=== PATIENT | female | born 2000 | race Caucasian/White ===

== ENCOUNTER 2023-01-27 04:17 | Observation (INO) ==
--- NOTE | 2023-01-27 04:38 | Emergency Department Note ---
Impression & Plan Nausea & vomiting, ED Provider Note CHIEF COMPLAINT: Vomiting, HISTORY OF PRESENTING ILLNESS: This 22-year-old female patient, who is approximately 15 to 16 weeks , presents to the emergency department for evaluation of vomiting and dehydration. The patient states that she has vomiting every hour since yesterday and unable to keep anything down. She complains of left flank pain and weakness as well. She feels that it is just from vomiting so much and feeling that her stomach is so empty. She has tried Zofran, Reglan, and Phenergan suppositories without improvement of her nausea and vomiting. Denies vaginal bleeding or vaginal discharge. She is still urinating 3-5 times a day. Denies any urinary symptoms. No fevers. Denies chest pain or SOB. She states that she has not had a BM in about 5 days because she has not been able to eat much. She has been trying to cut back on her marijuana use with her last use yesterday morning. REVIEW OF SYSTEMS: See HPI for pertinent positives and pertinent negatives. ALLERGIES: Lactose, red dye MEDICATIONS: See below PAST MEDICAL HISTORY: See below PHYSICAL EXAM: VITALS: Vitals are noted on the nurse's note and reviewed by myself. GENERAL: Non toxic, no acute distress, non-diaphoretic. SKIN: Capillary refill <2 sec. EYES: PERRLA. EOMI. Conjunctivae without injection, sclerae without icterus. NOSE: Patent without discharge. MOUTH: Mucous membranes moist. Uvula midline. Airway patent. NECK: Supple without nuchal rigidity. HEART: Regular rate and rhythm without murmurs gallops or rubs. LUNGS: Clear to auscultation bilaterally without wheezes, rales or rhonchi. No retractions or accessory muscle use. ABDOMEN: Positive bowel sounds x 4. Normal tympanic percussion. Soft, gravid, tender to palpation to the left flank without central abdominal pain. No masses or organomegaly. Alrkin sign negative. No guarding or rebound tenderness. No focal RLQ or LLQ tenderness. MUSCULOSKELETAL: No gross musculoskeletal defects. NEURO: Patient was alert and oriented. No focal neurological deficits. DIFFERENTIAL DIAGNOSIS: Differential diagnosis includes hyperemesis gravidarum, cannabinoid hyperemesis syndrome, hepatitis, pancreatitis, cholecystitis, cholelithiasis, appendicitis, kidney stone, pyelonephritis, UTI, gastritis, gastroenteritis, mesenteric adenitis, obstruction, constipation, hernia, abdominal abscess, perforation, diverticulitis, IBD, ischemic colitis, abdominal aortic aneurysm, ovarian cyst, ovarian torsion, acute salpingitis, or others. ED COURSE AND MEDICAL DECISION MAKING: MONITOR: Continuous potline monitor: Order was placed for continuous potline monitor. Patient was placed on the potline monitor and continuous pulse ox. Patient was noted to be in normal sinus rhythm at an initial rate of 72 bpm per my interpretation. MEDICATIONS GIVEN: A total of 2 L normal saline solution bolus. Zofran 4 mg IV, Reglan 10 mg IV, Phenergan 25 mg IM, Tylenol 1000 mg IV, and Pepcid 20 mg IV. INTERPRETATION OF LABS: I interpreted the labs with full lab results as below in the lab section of this note. CBC without leukocytosis, anemia, or thrombocytopenia. Potassium low at 3.3, but CMP otherwise essentially unremarkable. Lipase was normal. Urinalysis with 4+ ketones and questionable UTI. INTERPRETATION OF IMAGING: Imaging studies were interpreted by myself and read by radiology as per the imaging section of this note. Renal ultrasound was unremarkable. EXTERNAL RECORDS REVIEWED: I reviewed the patient's last ER visit on 01/23/2023 as well as her most recent [facility] visit. ultrasound on 01/23/2023 showed a single live intrauterine at approximately 15 weeks. CONSULTATIONS: Dr. Chopra of [facility] MDM SUMMARY: I examined the patient. An IV lock was placed and labs were drawn. The patient was medicated as above with improvement of her symptoms, but continued symptoms. ultrasound from 01/23/2023 was reviewed and renal ultrasound from today was unremarkable. heart tones were 140. The patient denies any pelvic pain or cramping and denies any vaginal bleeding or vaginal discharge. I do not feel that repeat ultrasound is needed at this time. The patient's urinalysis is questionable for infection and she states that she was to be taking a prescription for penicillin for a dental infection, but has been unable to take it due to the nausea and vomiting. Therefore, she was given Rocephin 2 g IV. The patient has Zofran, Reglan, and Phenergan suppositories at home and has been unable to manage her symptoms at home. Since the patient is still symptomatic after IV medications, I feel the patient requires admission for further management of her symptoms. I spoke with Dr. Chopra of [facility] who agreed to admit the patient for further management. Please refer to her dictation for further details. The patient's care was transferred in stable condition. DIAGNOSIS: Intractable nausea and vomiting Past Med/Surg History Medical History (Updated 01/27/23 @ 19:05 by Eufemia Bah PA-C) Anemia Asthma Chronic constipation Lactose intolerance Varicella vaccination Surgical History S/P foot surgery, left foot replacement S/P cholecystectomy S/P appendectomy S/P tonsillectomy and adenoidectomy Family History Grandmother (Maternal) Thyroid cancer Heart disease Grandfather (Maternal) Heart disease Denies family history of Ovarian cancer Breast cancer Colorectal cancer Social History (Updated 01/27/23 @ 17:14 by Armida Jarrell RN) Smoking Status: Former smoker Second Hand Exposure: No; Do You Dip or Chew Tobacco: No; Hx Alcohol Use: No Hx Substance Use: Yes Prescribed Medications: Marijuana Last Used Substance: Days (ago) Substance Use Type Other:: has marijuana card Preferred Language: Croatian Communication Ability: Effective Mud Mixer Operator Required: No Beliefs That Will Affect Care: None marital status: Single marital status details: Gabi Moy(25) [phone] Current Living Situation: Significant Other Current Living Situation Comment: Lives with S.O. and 2 children current occupational status: unemployed current occupation: homemaker Feels Safe at Home: Yes Gender Identity: Female Assistive Devices: None Allergies Allergies Allergy/AdvReac Type Severity Reaction Status Date / Time lactose Allergy Severe Gastrointestinal Verified 01/26/23 09:56 Upset red dye Allergy Severe Difficulty Verified 01/26/23 09:56 Breathing Home Meds Home Medications Medication Instructions Recorded Confirmed docusate sodium 100 mg capsule 100 mg PO BID 01/23/23 01/27/23 (Colace) ondansetron 4 mg disintegrating 4 mg PO .Q6H PRN Nausea And 01/23/23 01/27/23 tablet Vomiting polyethylene glycol 3350 17 gram 17 g PO BID 01/23/23 01/27/23 oral powder packet (Miralax) psyllium husk 0.4 gram capsule 1 tab PO DAILY 01/23/23 01/27/23 (Daily Fiber) Gummies 2 ea PO DAILY 01/27/23 01/27/23 albuterol sulfate 90 mcg/actuation See Rx Instructions .Route .COMPLEX 01/27/23 01/27/23 aerosol inhaler Previous Rx's Medication Instructions Recorded metoclopramide HCl 5 mg tablet 5 mg PO Q8H PRN nausea and 01/23/23 vomiting #10 tabs penicillin V potassium 500 mg 500 mg PO Q6H 7 days #28 tabs 01/23/23 tablet promethazine 12.5 mg rectal 12.5 mg [place] Q6H PRN nausea and 01/26/23 suppository vomiting #12 ea Results & Data (ED) Vital Signs Vital Signs - 24 hr 01/27/23 04:29 01/27/23 05:15 01/27/23 05:15 Temperature 36.6 C Temperature Source Temporal Artery Scan Pulse Rate 93 H 74 Pulse Rate [Apical] 74 Pulse Rhythm Regular Regular Pulse Rhythm [Apical] Regular Pulse Strength Normal Pulse Strength [Apical] Normal Respiratory Rate 20 18 18 Respiratory Effort / Characteristics Non-Labored Spontaneous Non-Labored Respiratory Depth Normal Normal Respiratory Pattern Regular Blood Pressure 121/75 Blood Pressure [Right Arm] 121/69 Blood Pressure Mean 90 Blood Pressure Mean [Right Arm] 86 Blood Pressure Position Sitting Pulse Oximetry 97 97 95 Oxygen Delivery Method Room Air Room Air Room Air Sepsis Recent Fever Within 48 Hours No Sepsis New/Unexplained Change in Mental Status N/A Sepsis Action Taken by Nursing No Action Required 01/27/23 05:16 01/27/23 05:30 01/27/23 06:00 Temperature Temperature Source Pulse Rate 77 71 74 Pulse Rate [Apical] Pulse Rhythm Pulse Rhythm [Apical] Pulse Strength Pulse Strength [Apical] Respiratory Rate 17 28 H Respiratory Effort / Characteristics Respiratory Depth Respiratory Pattern Blood Pressure 136/92 130/77 Blood Pressure [Right Arm] Blood Pressure Mean 106 94 Blood Pressure Mean [Right Arm] Blood Pressure Position Pulse Oximetry 100 99 Oxygen Delivery Method Sepsis Recent Fever Within 48 Hours Sepsis New/Unexplained Change in Mental Status Sepsis Action Taken by Nursing 01/27/23 07:00 01/27/23 09:00 Temperature Temperature Source Temporal Artery Scan Pulse Rate Pulse Rate [Apical] 100 H 87 Pulse Rhythm Pulse Rhythm [Apical] Regular Regular Pulse Strength Pulse Strength [Apical] Normal Normal Respiratory Rate 22 22 Respiratory Effort / Characteristics Non-Labored Non-Labored Respiratory Depth Normal Normal Respiratory Pattern Regular Regular Blood Pressure Blood Pressure [Right Arm] 133/65 113/72 Blood Pressure Mean Blood Pressure Mean [Right Arm] 87 85 Blood Pressure Position Pulse Oximetry 99 99 Oxygen Delivery Method Room Air Room Air Sepsis Recent Fever Within 48 Hours Sepsis New/Unexplained Change in Mental Status Sepsis Action Taken by Nursing Laboratory Data 01/27/23 05:10 01/27/23 05:10 Lab Results 01/27/23 Range/Units 05:10 WBC 7.33 (4.8-10.8) K/ul RBC 4.67 (4.20-5.40) M/uL Hgb 12.5 (12.0-16.0) g/dl Hct 36.3 L (37.0-47.0) % MCV 77.7 L (80.0-100.0) fL MCH 26.8 (25.0-34.0) pg MCHC 34.4 (32.0-36.0) g/dL RDW Std Deviation 39.1 (36.4-46.3) fL RDW Coeff of Jatin 14.0 (11.5-14.5) % Plt Count 299 (130-400) K/uL MPV 10.4 (9.4-12.4) fL Immature Gran % (Auto) 0.3 % Neut % (Auto) 66.6 % Lymph % (Auto) 25.4 % Cecil % (Auto) 7.0 % Eos % (Auto) 0.3 % Baso % (Auto) 0.4 % Neut # (Auto) 4.89 (1.40-6.50) K/uL Lymph # (Auto) 1.86 (1.20-3.40) K/uL Cecil # (Auto) 0.51 (0.11-0.59) K/uL Eos # (Auto) 0.02 (0.00-0.50) K/uL Baso # (Auto) 0.03 (0.00-0.20) K/uL Immature Gran # (Auto) 0.02 (0.01-0.20) K/uL Sodium 138 (136-145) mmol/L Potassium 3.3 L (3.5-5.1) mmol/L Chloride 104 (98-107) mmol/L Carbon Dioxide 23 (21-32) mmol/L Anion Gap 11 (3-11) BUN 5 L (6-23) mg/dl Creatinine 0.45 L (0.6-1.2) mg/dl Est Cr Clr Drug Dosing 192.9 ml/min Est GFR ( Amer) > 150.0 ml/min Est GFR (Non-Af Amer) 141.2 ml/min BUN/Creatinine Ratio 11.1 (10-20) Glucose 96 (70-99(Fasting)) mg/dl Calcium 9.0 (8.6-10.3) mg/dl Magnesium 1.8 (1.7-2.4) mg/dl Total Bilirubin 0.6 (0.2-1.0) mg/dl AST 10 L (13-39) U/L ALT 11 (7-52) U/L Alkaline Phosphatase 77 (34-104) U/L Total Protein 7.5 (6.0-8.3) gm/dl Albumin 4.1 (3.4-5.0) gm/dl Globulin 3.4 (2.5-4.0) gm/dl Albumin/Globulin Ratio 1.2 (0.9-2) Lipase 8 L (11-82) U/L Urine Color Dark Yellow Urine Appearance Cloudy A (Clear) Urine pH 6.0 (4.5-7.5) Ur Specific [place] 1.024 (1.000-1.030) Urine Protein Trace H (Negative) Urine Glucose (UA) Negative (Negative) Urine Ketones 4+ H (Negative) Urine Blood Negative (Negative) Urine Nitrite Negative (Negative) Urine Bilirubin Negative (Negative) Urine Urobilinogen Negative (Negative) Ur Leukocyte Esterase 2+ H (Negative) Urine WBC (Auto) >30 H (0-5) /hpf Urine RBC (Auto) 5-10 H (0-4) /hpf U Hyaline Cast (Auto) 0 (0-5) /lpf U Epithel Cells (Auto) >30 H (0-5) /lpf Urine Bacteria (Auto) 1+ H (Negative) Administered Medications Promethazine HCl 25 mg/ Sodium (Chloride) 51 mls @ 204 mls/hr IV Q6H BERTA Stop: 02/26/23 13:29 Last Infusion: 01/27/23 15:41 Dose: Infused Documented By: Admin: 01/27/23 15:24 Dose: 204 mls/hr Documented By: Aron Lactated Ringer's (Lr) 1,000 mls @ 125 mls/hr IV .Q8H PRN; Protocol PRN Reason: L&D Protocol Stop: 02/26/23 09:51 Last Admin: 01/27/23 18:32 Dose: 125 mls/hr Documented By: [facility] [place] Infusion: 01/27/23 18:32 Dose: Infused Documented By: [facility] [place] Admin: 01/27/23 11:02 Dose: 125 mls/hr Documented By: Aron Famotidine 20 mg/ Syringe 5 mls @ 2.5 mls/min IV Q12 BERTA Stop: 02/26/23 17:59 Last Admin: 01/27/23 18:08 Dose: 2.5 mls/min Documented By: Cdoi Acetaminophen (Ofirmev) 1,000 mg in 100 mls @ 400 mls/hr IV Q8H PRN PRN Reason: As Needed for Fever or Pain Stop: 01/30/23 10:44 Last Infusion: 01/27/23 15:41 Dose: Infused Documented By: Aron Admin: 01/27/23 15:26 Dose: 400 mls/hr Documented By: Aron Metoclopramide HCl (Metoclopramide Hcl Inj 5 Mg/Ml 2 Ml Vial) 5 mg IV Q6H BERTA Stop: 02/26/23 10:59 Last Admin: 01/27/23 17:21 Dose: 5 mg Documented By: [facility] [place] Admin: 01/27/23 12:56 Dose: 5 mg Documented By: Aron Ondansetron HCl (Ondansetron Inj 2 Mg/Ml 2 Ml Vial) 4 mg IV Q6H BERTA Stop: 02/26/23 10:29 Last Admin: 01/27/23 17:17 Dose: 4 mg Documented By: [facility] [place] Admin: 01/27/23 11:02 Dose: 4 mg Documented By: Aron Discontinued Medications Bisacodyl (Bisacodyl 10 Mg Supp) 10 mg GA NOW STA Stop: 01/27/23 10:03 Last Admin: 01/27/23 11:02 Dose: 10 mg Documented By: Aron Sodium Chloride (Nss) 1,000 mls @ 999 mls/hr IV .Q1H1M BERTA Stop: 01/27/23 06:00 Last Infusion: 01/27/23 07:32 Dose: Infused Documented By: Admin: 01/27/23 05:09 Dose: 999 mls/hr Documented By: FARHEEN Acetaminophen (Ofirmev) 1,000 mg in 100 mls @ 400 mls/hr IV NOW STA Stop: 01/27/23 05:02 Last Infusion: 01/27/23 05:26 Dose: Infused Documented By: Admin: 01/27/23 05:09 Dose: 400 mls/hr Documented By: FARHEEN Famotidine (Pepcid 20mg Iv Push) 20 mg in 5 mls @ 2.5 mls/min IV NOW STA Stop: 01/27/23 05:55 Last Admin: 01/27/23 06:10 Dose: 2.5 mls/min Documented By: DOMINGA Sodium Chloride (Nss) 1,000 mls @ 999 mls/hr IV .Q1H1M ONE Stop: 01/27/23 07:15 Last Infusion: 01/27/23 08:39 Dose: Infused Documented By: Admin: 01/27/23 06:57 Dose: 999 mls/hr Documented By: FARHEEN Ceftriaxone Sodium (Rocephin) 2,000 mg in 50 mls @ 100 mls/hr IV NOW STA Stop: 01/27/23 07:44 Last Infusion: 01/27/23 08:39 Dose: Infused Documented By: Admin: 01/27/23 07:23 Dose: 100 mls/hr Documented By: EZEKIEL Metoclopramide HCl (Metoclopramide Hcl Inj 5 Mg/Ml 2 Ml Vial) 10 mg IV NOW STA Stop: 01/27/23 05:29 Last Admin: 01/27/23 05:31 Dose: 10 mg Documented By: FARHEEN Ondansetron HCl (Ondansetron Inj 2 Mg/Ml 2 Ml Vial) 4 mg IV NOW STA Stop: 01/27/23 04:49 Last Admin: 01/27/23 05:09 Dose: 4 mg Documented By: FARHEEN Promethazine HCl (Promethazine Hcl Inj 25 Mg/Ml 1 Ml Vial) 25 mg IM NOW STA Stop: 01/27/23 07:16 Last Admin: 01/27/23 07:23 Dose: 25 mg Documented By: EZEKIEL Imaging Data Radiologist's Impression: Renal Ultrasound 01/27/23 04:48 ULTRASOUND KIDNEYS AND BLADDER CLINICAL HISTORY: Vomiting. Left flank pain. . COMPARISON STUDY: No priors. TECHNIQUE: Real-time, grayscale, and color flow sonography of the kidneys and bladder is performed. Images are reviewed in the transverse and longitudinal planes. FINDINGS: Kidneys: The kidneys are normal in size and echotexture. The right kidney measures 10.5 x 4.5 x 5.1 cm and the left kidney measures 11.6 x 4.8 x 5.5 cm. There is no hydronephrosis. No shadowing renal calculi are identified. There is no sonographic evidence of contour deforming renal mass lesion. No perinephric fluid is identified. Bladder: The bladder is decompressed and grossly normal in appearance. Bilateral ureteral jets were seen. IMPRESSION: Unremarkable sonographic examination of the kidneys and bladder. ACT 112: Negative or not required by law. Electronically signed by: Fredi Putnam M.D. 01/27/2023 6:52 AM Discharge Plan Visit Data Chief Complaint: Vomiting Stated Complaint: 15/16 WKS PREGANT,CAN'T STOP VOMITING,WEAK,DEHYDRA ED Provider: Davide Cal[facility] ED Midlevel Provider: Eufemia Bah Discharge Problem: Nausea & vomiting, Patient Disposition: Admitted As Inpatient Condition: Good Discharge Instructions Interventions: ED Discharge Assessment Last Done: 01/27/23 14:13 Discharge Problem: Nausea & vomiting Qualifiers: Vomiting type: unspecified Qualified Code(s): R11.2 - Nausea with vomiting, unspecified Qualifiers: Weeks of gestation: 16 weeks Qualified Code(s): Z3A.16 - 16 weeks gestation of
[2023-01-27] MEDS ORDERED: ONDANSETRON INJ 2 MG/ML 2 ML VIAL IV STA (04:48)
[2023-01-27] MEDS ORDERED: ACETAMINOPHEN 1,000 MG/100 ML VIAL IV STA (04:48)
[2023-01-27] MEDS ORDERED: SODIUM CHLORIDE 0.9% 1,000 ML IV SCH (05:00)
[2023-01-27 05:26] LABS: Basophils # (auto) 0.03 K/uL (0.00-0.20); Basophils % (auto) 0.4 %; Eosinophils # (auto) 0.02 K/uL (0.00-0.50); Eosinophils % (auto) 0.3 %; Hematocrit (blood only) 36.3 % (37.0-47.0); Hemoglobin 12.5 g/dl (12.0-16.0); Immature Granulocytes # (auto) 0.02 K/uL (0.01-0.20); Immature Granulocytes % (auto) 0.3 %; Lymphocytes # (auto) 1.86 K/uL (1.20-3.40); Lymphocytes % (auto) 25.4 %; Mean Corpuscular Hemoglobin 26.8 pg (25.0-34.0); Mean Corpuscular Hgb Conc 34.4 g/dL (32.0-36.0); Mean Corpuscular Volume 77.7 fL (80.0-100.0); Mean Platelet Volume 10.4 fL (9.4-12.4); Monocytes # (auto) 0.51 K/uL (0.11-0.59); Neutrophils # (auto) 4.89 K/uL (1.40-6.50); Neutrophils % (auto) 66.6 %; Platelet Count 299 K/uL (130-400); RDW Standard Deviation 39.1 fL (36.4-46.3); Red Blood Count 4.67 M/uL (4.20-5.40); White Blood Count 7.33 K/ul (4.8-10.8)
[2023-01-27] MEDS ORDERED: METOCLOPRAMIDE HCL INJ 5 MG/ML 2 ML VIAL IV STA (05:28)
[2023-01-27 05:36] LABS: Appearance Urine Cloudy (Clear); Bacteria Urine Automated 1+ (Negative); Bilirubin Urine Negative (Negative); Blood Urine Negative (Negative); Color Urine Dark Yellow; Epithelial Cell Urine Auto >30 /lpf (0-5); Glucose Urine UA Negative (Negative); Ketones Urine 4+ (Negative); Leukocyte Esterase Urine 2+ (Negative); Nitrite Urine Negative (Negative); Protein Urine Trace (Negative); Specific Gravity Urine 1.024 (1.000-1.030); Urobilinogen Urine Negative (Negative); WBC Urine Automated >30 /hpf (0-5)
[2023-01-27 05:42] LABS: Albumin Level 4.1 gm/dl (3.4-5.0); Anion Gap 11 (3-11); Bilirubin,Total 0.6 mg/dl (0.2-1.0); Carbon Dioxide 23 mmol/L (21-32); Chloride 104 mmol/L (98-107); Magnesium 1.8 mg/dl (1.7-2.4); Potassium 3.3 mmol/L (3.5-5.1); Sodium 138 mmol/L (136-145)
[2023-01-27 05:48] LABS: Alanine Aminotransferase 11 U/L (7-52); Albumin Globulin Ratio 1.2 (0.9-2); Alkaline Phosphatase 77 U/L (34-104); Aspartate Aminotransferase 10 U/L (13-39); BUN Creatinine Ratio 11.1 (10-20); Blood Urea Nitrogen 5 mg/dl (6-23); Creatinine Clr Calc Pharmacy 192.9 ml/min; Est GFR (African American) > 150.0 ml/min; Est GFR (Non-African American) 141.2 ml/min; Globulin 3.4 gm/dl (2.5-4.0); Glucose 96 mg/dl (70-99(Fasting)); Lipase 8 U/L (11-82); Total Protein 7.5 gm/dl (6.0-8.3)
[2023-01-27] MEDS ORDERED: FAMOTIDINE 20MG IV PUSH 20 MG/5 ML SYR IV STA (05:54)
[2023-01-27] MEDS ORDERED: SODIUM CHLORIDE 0.9% 1,000 ML IV ONE (06:15)
[2023-01-27 06:30] LABS: Cast Urine Automated 0 /lpf (0-5)
--- NOTE | 2023-01-27 06:53 | Ultrasound Report ---
ULTRASOUND KIDNEYS AND BLADDER CLINICAL HISTORY: Vomiting. Left flank pain. . COMPARISON STUDY: No priors. TECHNIQUE: Real-time, grayscale, and color flow sonography of the kidneys and bladder is performed. I mages are reviewed in the transverse and longitudinal planes. FINDINGS: Kidneys: The kidneys are normal in size and echotexture. The right kidney measures 10.5 x 4.5 x 5.1 c m and the left kidney measures 11.6 x 4.8 x 5.5 cm. There is no hydronephrosis. No shadowing renal c alculi are identified. There is no sonographic evidence of contour deforming renal mass lesion. No pe rinephric fluid is identified. Bladder: The bladder is decompressed and grossly normal in appearance. Bilateral ureteral jets were s een. IMPRESSION: Unremarkable sonographic examination of the kidneys and bladder. ACT 112: Negative or not required by law. Electronically signed by: Fredi Putnam M.D. 01/27/2023 6:52 AM
[2023-01-27] MEDS ORDERED: PROMETHAZINE HCL INJ 25 MG/ML 1 ML VIAL IM STA (07:15)
[2023-01-27] MEDS ORDERED: cefTRIAXone SODIUM 2,000 MG/50 ML BAG IV STA (07:15)
[2023-01-27] MEDS ORDERED: bisacodyL 10 MG SUPP PR STA (10:02)
--- NOTE | 2023-01-27 10:38 | OB/GYN Consultation ---
Date of Consultation January 27, 2023 Assessment & Plan (1) Nausea & vomiting: (2) : Plan 22 yo at 15 6/7 wga to be admitted for persistent n/v VSS N/V - electrolytes wnl except just slighty hypokalemic, stable from ER visit earlier this week. Suspect constipation is playing a role in the n/v of as she also can't keep medications to help her constipation and zofran contributing to the constipation as well. Will admit and make NPO, IVF. s/p 2L NS in the ER so will start LR to see if will help slight hypokalemia as well. Will have scheduled IV zofran, reglan, phenergan, pepcid. Offered suppository to help w/ constipation as cannot tolerate PO med and she is amenable. Monitor I/Os, repeat labs/electrolytes IUP - FHT 140s in the ER, continue daily UA - ?contaminated as was reassuring yday in clinic, was given dose of rocephin by ER as she was supposed to be taking pcn for tooth infection but hasn't been able to tolerate History of Present Illness Reason for Consultation: intractable n/v Requesting Physician: Eufemia Bah History of Present Illness 22 yo at 15 6/7 wga presented to ER due to persistent n/v. Has been dealing w/ n/v throughout the . Was seen yesterday for NOB visit and had been able to keep somethings down but after visit hasn't been able to keep anything down and reports vomiting constantly. Was using zofran which did not help so was given reglan in ER earlier this wk w/o much relief. Was given rectal phenergan yesterday after visit, first dose helped a little but vomited through second dose and presented to ER due to persistent vomiting since then. Notes has been having issues w/ constipation but cannot keep the miralax down that she was recommended. Had a small pellet like BM this AM but prior to that had not really had a good BM in days. Denies vb Allergies Allergy/AdvReac Type Severity Reaction Status Date / Time lactose Allergy Severe Gastrointestinal Verified 01/26/23 09:56 Upset red dye Allergy Severe Difficulty Verified 01/26/23 09:56 Breathing Home Medications Medication Instructions Recorded Confirmed Type docusate sodium 100 mg capsule 100 mg PO BID 01/23/23 01/27/23 History (Colace) metoclopramide HCl 5 mg tablet 5 mg PO Q8H PRN nausea and 01/23/23 01/27/23 Rx vomiting #10 tabs ondansetron 4 mg disintegrating 4 mg PO .Q6H PRN Nausea And 01/23/23 01/27/23 History tablet Vomiting penicillin V potassium 500 mg 500 mg PO Q6H 7 days #28 tabs 01/23/23 01/27/23 Rx tablet polyethylene glycol 3350 17 gram 17 g PO BID 01/23/23 01/27/23 History oral powder packet (Miralax) psyllium husk 0.4 gram capsule 1 tab PO DAILY 01/23/23 01/27/23 History (Daily Fiber) promethazine 12.5 mg rectal 12.5 mg [place] Q6H PRN nausea and 01/26/23 01/27/23 Rx suppository vomiting #12 ea Gummies 2 ea PO DAILY 01/27/23 01/27/23 History albuterol sulfate 90 mcg/actuation See Rx Instructions .Route .COMPLEX 01/27/23 01/27/23 History aerosol inhaler Patient History Medical History Chronic constipation Lactose intolerance Varicella vaccination Surgical History S/P foot surgery, left foot replacement S/P cholecystectomy S/P appendectomy S/P tonsillectomy and adenoidectomy Family History Grandmother (Maternal) Thyroid cancer Heart disease Grandfather (Maternal) Heart disease Denies family history of Ovarian cancer Breast cancer Colorectal cancer Social History Smoking Status: Never smoker Do You Dip or Chew Tobacco: No; Preferred Language: Sami marital status: Single marital status details: aGbi Moy(25) [phone] Current Living Situation: Family and Significant Other Current Living Situation Comment: lives with Fob, 2 children, no pets current occupational status: unemployed current occupation: homemaker Feels Safe at Home: Yes Physical Exam Respiratory: normal respiratory effort; no respiratory distress and no labored breathing Gastrointestinal (Abdomen): soft, gravid, NT heart tones auscultated 140s w/ doppler Results & Data Vital Signs (Past 12 Hours) Vital Signs Temp Pulse Pulse Resp BP BP Pulse Ox 01/27/23 09:00 87 22 113/72 99 01/27/23 07:00 100 H 22 133/65 99 01/27/23 06:00 74 28 H 130/77 99 01/27/23 05:30 71 17 136/92 100 01/27/23 05:16 77 01/27/23 05:15 74 18 95 01/27/23 05:15 74 18 121/69 97 01/27/23 04:29 97.9 F 93 H 20 121/75 97 O2 Del Method 01/27/23 09:00 Room Air 01/27/23 07:00 Room Air 01/27/23 06:00 01/27/23 05:30 01/27/23 05:16 01/27/23 05:15 Room Air 01/27/23 05:15 Room Air 01/27/23 04:29 Room Air Laboratory Results 01/27/23 Range/Units 05:10 WBC 7.33 (4.8-10.8) K/ul RBC 4.67 (4.20-5.40) M/uL Hgb 12.5 (12.0-16.0) g/dl Hct 36.3 L (37.0-47.0) % MCV 77.7 L (80.0-100.0) fL MCH 26.8 (25.0-34.0) pg MCHC 34.4 (32.0-36.0) g/dL RDW Std Deviation 39.1 (36.4-46.3) fL RDW Coeff of Jatin 14.0 (11.5-14.5) % Plt Count 299 (130-400) K/uL MPV 10.4 (9.4-12.4) fL Immature Gran % (Auto) 0.3 % Neut % (Auto) 66.6 % Lymph % (Auto) 25.4 % Div[place] % (Auto) 7.0 % Eos % (Auto) 0.3 % Baso % (Auto) 0.4 % Neut # (Auto) 4.89 (1.40-6.50) K/uL Lymph # (Auto) 1.86 (1.20-3.40) K/uL [place] # (Auto) 0.51 (0.11-0.59) K/uL Eos # (Auto) 0.02 (0.00-0.50) K/uL Baso # (Auto) 0.03 (0.00-0.20) K/uL Immature Gran # (Auto) 0.02 (0.01-0.20) K/uL Sodium 138 (136-145) mmol/L Potassium 3.3 L (3.5-5.1) mmol/L Chloride 104 (98-107) mmol/L Carbon Dioxide 23 (21-32) mmol/L Anion Gap 11 (3-11) BUN 5 L (6-23) mg/dl Creatinine 0.45 L (0.6-1.2) mg/dl Est Cr Clr Drug Dosing 192.9 ml/min Est GFR ( Amer) > 150.0 ml/min Est GFR (Non-Af Amer) 141.2 ml/min BUN/Creatinine Ratio 11.1 (10-20) Glucose 96 (70-99(Fasting)) mg/dl Calcium 9.0 (8.6-10.3) mg/dl Magnesium 1.8 (1.7-2.4) mg/dl Total Bilirubin 0.6 (0.2-1.0) mg/dl AST 10 L (13-39) U/L ALT 11 (7-52) U/L Alkaline Phosphatase 77 (34-104) U/L Total Protein 7.5 (6.0-8.3) gm/dl Albumin 4.1 (3.4-5.0) gm/dl Globulin 3.4 (2.5-4.0) gm/dl Albumin/Globulin Ratio 1.2 (0.9-2) Lipase 8 L (11-82) U/L Urine Color Dark Yellow Urine Appearance Cloudy A (Clear) Urine pH 6.0 (4.5-7.5) Ur Specific [place] 1.024 (1.000-1.030) Urine Protein Trace H (Negative) Urine Glucose (UA) Negative (Negative) Urine Ketones 4+ H (Negative) Urine Blood Negative (Negative) Urine Nitrite Negative (Negative) Urine Bilirubin Negative (Negative) Urine Urobilinogen Negative (Negative) Ur Leukocyte Esterase 2+ H (Negative) Urine WBC (Auto) >30 H (0-5) /hpf Urine RBC (Auto) 5-10 H (0-4) /hpf U Hyaline Cast (Auto) 0 (0-5) /lpf U Epithel Cells (Auto) >30 H (0-5) /lpf Urine Bacteria (Auto) 1+ H (Negative) PG Care Time/CCT Total # of Minutes Spent Total Time Spent with Patient: Total time spent is greater than 50% in coordination of care (as documented) at patient's floor/unit and/or counseling patient: Coding Level of Care Code None Diagnoses Nausea & vomiting R11.2 Z34.90
[2023-01-27] MEDS: LACTATED RINGER'S 1,000 ML IV PRN ×2 (11:02→18:32)
[2023-01-27] MEDS: ONDANSETRON INJ 2 MG/ML 2 ML VIAL IV SCH ×3 (11:02→22:44)
[2023-01-27] MEDS: METOCLOPRAMIDE HCL INJ 5 MG/ML 2 ML VIAL IV SCH ×3 (12:56→22:44)
[2023-01-27] MEDS: PROMETHAZINE HCL 25 MG in SODIUM CHLORIDE 0.9% 50 ML IV SCH ×2 (15:24→20:00)
[2023-01-27] MEDS: ACETAMINOPHEN 1,000 MG/100 ML VIAL IV PRN (15:26)
--- NOTE | 2023-01-27 17:43 | Communication Note ---
Date of Service: January 27, 2023 Met with patient after moving up to the fourth floor. Still persistently nauseous however has only thrown up twice since my consult which is a drastic i mprovement from overnight she reports. She has been peeing a lot more throughout the day as well, multiple times in the ER and now just recently voided 200 appear. She requests to eat, I discussed I would recommend that she remain n.p.o. given that she has still vomited this recently right before coming up to our floor. Discussed it will take time for her to fully get better given extent of her nausea and vomiting prior but is reassuring that she is not thrown up more than she already has and that it sounds like her urine output has improved. Has not had further bowel movements yet. We will continue with IV fluids and IV nausea medications
[2023-01-27] MEDS: FAMOTIDINE 20 MG in SYRINGE 3 ML IV SCH (18:08)
[2023-01-28] MEDS: PROMETHAZINE HCL 25 MG in SODIUM CHLORIDE 0.9% 50 ML IV SCH ×4 (01:34→19:37)
[2023-01-28] MEDS: LACTATED RINGER'S 1,000 ML IV PRN ×3 (04:30→18:34)
[2023-01-28] MEDS: METOCLOPRAMIDE HCL INJ 5 MG/ML 2 ML VIAL IV SCH ×4 (04:33→20:04)
[2023-01-28] MEDS: ONDANSETRON INJ 2 MG/ML 2 ML VIAL IV SCH ×3 (04:33→16:40)
[2023-01-28 06:30] LABS: Alanine Aminotransferase 10 U/L (7-52); Albumin Globulin Ratio 1.2 (0.9-2); Albumin Level 3.8 gm/dl (3.4-5.0); Alkaline Phosphatase 79 U/L (34-104); Anion Gap 12 (3-11); Aspartate Aminotransferase 11 U/L (13-39); Bilirubin,Total 0.8 mg/dl (0.2-1.0); Blood Urea Nitrogen 2 mg/dl (6-23); Calcium 8.8 mg/dl (8.6-10.3); Carbon Dioxide 17 mmol/L (21-32); Chloride 105 mmol/L (98-107); Creatinine Clr Calc Pharmacy 218.4 ml/min; Est GFR (African American) > 150.0 ml/min; Est GFR (Non-African American) 146.8 ml/min; Globulin 3.2 gm/dl (2.5-4.0); Glucose 90 mg/dl (70-99(Fasting)); Potassium 3.5 mmol/L (3.5-5.1); Sodium 134 mmol/L (136-145)
[2023-01-28 06:33] LABS: Hematocrit (blood only) 34.8 % (37.0-47.0); Hemoglobin 12.2 g/dl (12.0-16.0); Mean Corpuscular Hemoglobin 27.5 pg (25.0-34.0); Mean Corpuscular Hgb Conc 35.1 g/dL (32.0-36.0); Mean Corpuscular Volume 78.4 fL (80.0-100.0); Mean Platelet Volume 10.7 fL (9.4-12.4); Platelet Count 305 K/uL (130-400); RDW Coefficient of Variation 13.9 % (11.5-14.5); RDW Standard Deviation 39.5 fL (36.4-46.3); Red Blood Count 4.44 M/uL (4.20-5.40); White Blood Count 9.76 K/ul (4.8-10.8)
[2023-01-28] MEDS: FAMOTIDINE 20 MG in SYRINGE 3 ML IV SCH ×2 (08:10→21:50)
[2023-01-28] MEDS ORDERED: bisacodyL 10 MG SUPP PR ONE (08:14)
--- NOTE | 2023-01-28 08:15 | Obstetrical Progress Note ---
Date of Service January 28, 2023 Assessment & Plan (1) Nausea & vomiting: (2) : Plan 22 yo at 15 6/7 wga to be admitted for persistent n/v VSS N/V - has been voiding more suggestive of improved volemic status. Electrolytes wnl. Has scheduled iv zofran, phenergan, reglan, pepcid and fluids. Will add tums, pt states just doesn't take the red ones due to allergy. Increased reglan to 10mg, dulcolax ordered to help w/ constipation IUP - daily FHT Admission and Anticipated Discharge Date Admission Date: January 27, 2023 Subjective Only had 2-3 episodes of emesis yesterday during the day, hwoever overnight says she was vomiting q2-3hours and thinks was partly heartburn related. Denies VB. Sometimes will vomit separately from the nausea as well Physical Exam Respiratory: normal respiratory effort; no respiratory distress and no labored breathing Results & Data Vital Signs (Past 12 Hours) Vital Signs Temp Pulse Resp BP Pulse Ox O2 Del Method 01/28/23 00:50 98.4 F 86 18 129/70 97 Room Air Laboratory Results 01/28/23 Range/Units 05:52 WBC 9.76 (4.8-10.8) K/ul RBC 4.44 (4.20-5.40) M/uL Hgb 12.2 (12.0-16.0) g/dl Hct 34.8 L (37.0-47.0) % MCV 78.4 L (80.0-100.0) fL MCH 27.5 (25.0-34.0) pg MCHC 35.1 (32.0-36.0) g/dL RDW Std Deviation 39.5 (36.4-46.3) fL RDW Coeff of Jatin 13.9 (11.5-14.5) % Plt Count 305 (130-400) K/uL MPV 10.7 (9.4-12.4) fL Sodium 134 L (136-145) mmol/L Potassium 3.5 (3.5-5.1) mmol/L Chloride 105 (98-107) mmol/L Carbon Dioxide 17 L (21-32) mmol/L Anion Gap 12 H (3-11) BUN 2 L (6-23) mg/dl Creatinine 0.40 L (0.6-1.2) mg/dl Est Cr Clr Drug Dosing 218.4 ml/min Est GFR ( Amer) > 150.0 ml/min Est GFR (Non-Af Amer) 146.8 ml/min BUN/Creatinine Ratio 5.0 L (10-20) Glucose 90 (70-99(Fasting)) mg/dl Calcium 8.8 (8.6-10.3) mg/dl Total Bilirubin 0.8 (0.2-1.0) mg/dl AST 11 L (13-39) U/L ALT 10 (7-52) U/L Alkaline Phosphatase 79 (34-104) U/L Total Protein 7.0 (6.0-8.3) gm/dl Albumin 3.8 (3.4-5.0) gm/dl Globulin 3.2 (2.5-4.0) gm/dl Albumin/Globulin Ratio 1.2 (0.9-2) PG Care Time/CCT Total # of Minutes Spent Total Time Spent with Patient: Total time spent is greater than 50% in coordination of care (as documented) at patient's floor/unit and/or counseling patient: Coding Level of Care Code 94269 SUB INP/OBS CARE 1/25MIN Diagnoses Nausea & vomiting R11.2 Vomiting type: unspecified Z3A.16 Weeks of gestation: 16 weeks (1) Nausea & vomiting Vomiting type: unspecified Qualified Code(s): R11.2 - Nausea with vomiting, unspecified (2) Weeks of gestation: 16 weeks Qualified Code(s): Z3A.16 - 16 weeks gestation of
[2023-01-28] MEDS: CALCIUM CARBONATE 500 MG CHEWABLE TAB PO PRN ×3 (09:13→19:37)
[2023-01-28] MEDS ORDERED: SOD PHOSPHATE/SOD BIPHOSPHATE ENEMA 132 ML BTL PR ONE (09:54)
[2023-01-28] MEDS: ACETAMINOPHEN 1,000 MG/100 ML VIAL IV PRN (20:04)
[2023-01-28] MEDS ORDERED: ONDANSETRON INJ 2 MG/ML 2 ML VIAL IV PRN (20:30)
[2023-01-28] MEDS: ONDANSETRON 4 MG OD TAB PO SCH (22:55)
[2023-01-29] MEDS: PROMETHAZINE HCL 25 MG in SODIUM CHLORIDE 0.9% 50 ML IV SCH (01:30)
[2023-01-29] MEDS: LACTATED RINGER'S 1,000 ML IV PRN (02:47)
[2023-01-29] MEDS: METOCLOPRAMIDE HCL INJ 5 MG/ML 2 ML VIAL IV SCH (02:47)
[2023-01-29] MEDS: ONDANSETRON 4 MG OD TAB PO SCH ×3 (04:33→16:07)
[2023-01-29] MEDS: CALCIUM CARBONATE 500 MG CHEWABLE TAB PO PRN ×2 (08:38→16:07)
--- NOTE | 2023-01-29 08:57 | Obstetrical Progress Note ---
Date of Service January 29, 2023 Assessment & Plan (1) Nausea & vomiting: Plan: Discussed plan for today with patient: Since she did ok with PO ODT Zofran last night, will plan to switch IV nausea meds over to PO in an effort to move her toward discharge home. Will stop IV fluids administration, and will be ok to remove IV saline lock if she tolerates PO fluids. Discussed that if she tolerates PO meds and oral intake, then hopefully will be able to go home later today. Recommend that she continue with scheduled dosing of the medications to try to stay "ahead" of nausea/vomiting, rather than trying to catch-up. She is agreeable with this plan and wants to get home to her family. Continue daily FHT checks while here at [facility]. Admission and Anticipated Discharge Date Admission Date: January 27, 2023 Subjective 22yo @ 16 1/, Hospital Day 3 with nausea/vomiting during . She felt like she saw some improvement throughout the day yesterday. While she is still experiencing vomiting, this is occurring less frequently and further out from her oral intake. She switched to PO Zofran ODT last night. Consuming PO liquids with some vomiting. Has IV fluids running, however is hoping to have IV removed today. Physical Exam Physical Exam: Awake, alert, oriented, talking. No abdominal tenderness. No LE edema. Results & Data Vital Signs (Past 12 Hours) Vital Signs Temp Pulse Resp BP Pulse Ox O2 Del Method 01/28/23 22:53 37 C 87 18 111/49 L 98 Room Air PG Care Time/CCT Total # of Minutes Spent Total Time Spent with Patient: Total time spent is greater than 50% in coordination of care (as documented) at patient's floor/unit and/or counseling patient: Coding Level of Care Code 30809 SUB INP/OBS CARE 2/35MIN Diagnoses Nausea & vomiting R11.2 Vomiting type: unspecified (1) Nausea & vomiting Vomiting type: unspecified Qualified Code(s): R11.2 - Nausea with vomiting, unspecified
[2023-01-29] MEDS ORDERED: ACETAMINOPHEN 500 MG TAB PO PRN (09:06)
[2023-01-29] MEDS ORDERED: PROMETHAZINE HCL 25 MG TAB PO PRN (09:11)
[2023-01-29] MEDS ORDERED: FAMOTIDINE 20 MG TAB PO SCH (09:15)
[2023-01-29] MEDS: METOCLOPRAMIDE HCL 10 MG TABLET PO SCH ×2 (09:31→16:07)
--- NOTE | 2023-01-29 17:59 | Obstetrical Progress Note ---
Date of Service January 29, 2023 Assessment & Plan (1) Hyperemesis affecting , antepartum: Plan given tolerating po so far, and called by nurse saying pt did tolerate more for dinner and wants to go home, will send home. scripts sent. has appt in ob office 02/09. she does not expect to never vomit but enc her to eat foods she feels she likes, she asks about meat as her fiancee is worried she is not interested in eating meat. we discussed alternative protein sources that she enjoys like thai yogurt, cheese, nuts, beans. she will consider that moving foward. Admission and Anticipated Discharge Date Admission Date: January 27, 2023 Subjective spoke to pt about 5pm today. she was sitting in bed. feels well, much better than previous. has not vomited in many hours. eating chips, crackers, fruit, keeping all down. would like to try to eat something for dinner as she feels hungry and then go home. feels new med regimen helping and need scripts sent. Physical Exam Constitutional: WD/WN, vitals as above Neurologic: grossly normal Psychiatric: A+Ox3, euthymic affect Results & Data Vital Signs (Past 12 Hours) Vital Signs Temp Pulse Resp BP Pulse Ox O2 Del Method 01/29/23 17:40 98.8 F 83 18 118/79 99 01/29/23 16:00 98.8 F 83 18 118/79 99 Room Air 01/29/23 11:00 98.1 F 100 H 18 135/82 97 Room Air 01/29/23 07:45 98.8 F 90 18 133/78 99 Room Air PG Care Time/CCT Total # of Minutes Spent Total Time Spent with Patient: Total time spent is greater than 50% in coordination of care (as documented) at patient's floor/unit and/or counseling patient: Coding Level of Care Code 52437 SUB INP/OBS CARE 2/35MIN Diagnoses Hyperemesis affecting , antepartum O21.0 Comment can please change this to somesort of day code. not available via this note.
--- NOTE | 2023-01-29 18:03 | Discharge Summary ---
Date of Service Admission date 01/27/23 Discharge date January 29, 2023 Admission HPI Per Admitting Provider Admission history per admitting doctor: 22 yo at 15 6/7 wga presented to ER due to persistent n/v. Has been dealing w/ n/v throughout the . Was seen yesterday for NOB visit and had been able to keep somethings down but after visit hasn't been able to keep anything down and reports vomiting constantly. Was using zofran which did not help so was given reglan in ER earlier this wk w/o much relief. Was given rectal phenergan yesterday after visit, first dose helped a little but vomited through second dose and presented to ER due to persistent vomiting since then. Notes has been having issues w/ constipation but cannot keep the miralax down that she was recommended. Had a small pellet like BM this AM but prior to that had not really had a good BM in days. Denies vb Discharge Data Consultations 01/27/23 08:53 ED Decision to Admit Stat Hospital Course (1) : (2) Hyperemesis affecting , antepartum: (3) Constipation: (4) Nausea & vomiting: Plan Patient was admitted and kept npo. A regimen for n/v was begun and additionally bowel regimen started. Over course of 2d her vomiting episodes decreased and on day of discharge was able to hold down oral foods and wanted to go home. Had planned f/u 02/09 in office and appropriate prescriptions were sent. Apparently prescribed pcn by another provider due to tooth pain and she planned on taking now that her n/v had subsided. Coding Level of Care Code 38312 IN/OBS DISCH 30 MIN/LESS Diagnoses Z3A.16 Weeks of gestation: 16 weeks Hyperemesis affecting , antepartum O21.0 Constipation K59.00 Nausea & vomiting R11.2 Vomiting type: unspecified
== END 2023-01-29 18:20 | disposition home or self-care (01) ==
LOC: EDINP 04:17 → ED 04:17 → 4E1 14:13

== ENCOUNTER 2023-07-06 01:55 | Inpatient (IN) ==
[2023-07-06] MEDS ORDERED: LIDOCAINE 1% LOCAL 20 ML VIAL INFIL PRN (05:16)
[2023-07-06] MEDS ORDERED: OXYTOCIN 30 UNITS/NSS 30 UNITS/500 ML BAG IV PRN ×2 (05:16→12:31)
[2023-07-06] MEDS: LACTATED RINGER'S 1,000 ML IV PRN (05:55)
[2023-07-06 06:10] LABS: Hematocrit (blood only) 37.1 % (37.0-47.0); Hemoglobin 12.3 g/dl (12.0-16.0); Mean Corpuscular Hemoglobin 27.4 pg (25.0-34.0); Mean Corpuscular Hgb Conc 33.2 g/dL (32.0-36.0); Mean Corpuscular Volume 82.6 fL (80.0-100.0); Mean Platelet Volume 10.3 fL (9.4-12.4); Platelet Count 340 K/uL (130-400); RDW Coefficient of Variation 14.6 % (11.5-14.5); RDW Standard Deviation 43.2 fL (36.4-46.3); Red Blood Count 4.49 M/uL (4.20-5.40); White Blood Count 17.27 K/ul (4.8-10.8)
--- NOTE | 2023-07-06 07:11 | Anesthesiology Consultation ---
Date of Service July 06, 2023 Assessment & Plan (1) Encounter for pre-operative examination: Chart Review Chart Review: Acceptable Risk for Labor Epidural History Height/Weight Height: 5 ft Weight: 92.533 kg Allergies Allergy/AdvReac Type Severity Reaction Status Date / Time lactose Allergy Severe Gastrointestinal Verified 07/06/23 02:15 Upset red dye Allergy Severe Difficulty Verified 07/06/23 02:15 Breathing Medications Home Medications Medication Instructions Recorded Confirmed Last Taken docusate sodium 100 mg capsule 100 mg PO BID 01/23/23 07/06/23 07/05/23 (Colace) polyethylene glycol 3350 17 gram 17 g PO DAILY 01/23/23 07/06/23 07/05/23 oral powder packet (Miralax) Gummies 2 ea PO DAILY 01/27/23 07/06/23 07/05/23 albuterol sulfate 90 mcg/actuation See Rx Instructions .Route .COMPLEX 01/27/23 07/06/23 06/10/23 aerosol inhaler famotidine 20 mg tablet 20 mg PO BID #60 tabs 01/29/23 07/06/23 07/05/23 metoclopramide HCl 10 mg tablet 10 mg PO Q6 PRN nausea and 06/25/23 07/06/23 07/05/23 vomiting #120 tabs ondansetron 4 mg disintegrating See Rx Instructions .Route 06/25/23 07/06/23 07/05/23 tablet .COMPLEX #30 tabs Active Medications Generic Name Dose Route Start Last Admin Trade Name Freq PRN Reason Stop Dose Admin Lactated Ringer's 1,000 mls @ 125 mls/hr 07/06/23 05:16 07/06/23 06:50 Lr IV 07/08/23 05:15 999 mls/hr .Q8H PRN Infusion L&D Protocol Protocol Past Medical History Medical History Anemia Asthma Chronic constipation Lactose intolerance Varicella vaccination Past Family History Family History Grandmother (Maternal) Thyroid cancer Heart disease Grandfather (Maternal) Heart disease Denies family history of Ovarian cancer Breast cancer Colorectal cancer Past Surgical History Surgical History S/P foot surgery, left foot replacement S/P cholecystectomy S/P appendectomy S/P tonsillectomy and adenoidectomy Social History Smoking Status: Former smoker Do You Dip or Chew Tobacco: No Hx Alcohol Use: No Hx Substance Use: Yes substance use type: marijuana Substance Use Type Other:: Marijuana card. Use 7 months ago. Last Used Substance: Days (ago) Last Used Substance Other:: last used approximately 2months ago. Pt has medical card Physical Exam Vital Signs Last Vital Signs Temp 36.5 C 07/06/23 02:18 Pulse 88 07/06/23 07:04 Resp 18 07/06/23 02:18 BP 124/72 07/06/23 02:18 Pulse Ox 99 07/06/23 07:04 O2 Del Method Room Air 07/06/23 02:18 Testing Laboratory Results 07/06/23 05:39 Blood Type O Positive 07/06/23 05:39 Antibody Screen NEGATIVE 07/06/23 05:39
[2023-07-06] MEDS: fentANYL 2 MCG/ML BUPIVacaine 0.125%-NSS 100ML BAG ONE (07:30)
[2023-07-06] MEDS ORDERED: ePHEDrine sulfate 50 MG/ML AMP IV PRN (07:31)
[2023-07-06] MEDS ORDERED: LIDOCAINE 2% MPF LOCAL 5 ML VIAL EPI PRN (07:31)
[2023-07-06] MEDS ORDERED: ROPIVACAINE 0.5% PF 5 MG/ML 20 ML VIAL EPI PRN (07:31)
[2023-07-06] MEDS ORDERED: fentaNYL citrate PF 100 MCG/2 ML VIAL EPI PRN (07:31)
[2023-07-06] MEDS ORDERED: fentANYL 2 MCG/ML BUPIVacaine 0.125%-NSS 100ML BAG EPI PRN (07:31)
[2023-07-06] MEDS ORDERED: NALOXONE HCL 0.4 MG/1 ML VIAL/CARP IV PRN (07:31)
[2023-07-06] MEDS ORDERED: SODIUM CHLORIDE 0.9% PF INJ 10 ML VIAL EPI PRN (07:31)
[2023-07-06] MEDS ORDERED: NALOXONE HCL 1 MG in SODIUM CHLORIDE 0.9% 1,000 ML IV PRN (07:31)
[2023-07-06] MEDS ORDERED: BUPIVACAINE 0.25% PF 30 ML VIAL EPI PRN (07:31)
[2023-07-06] MEDS: fentaNYL citrate PF 100 MCG/2 ML VIAL ONE (07:36)
[2023-07-06] MEDS: LIDOCAINE 2%/EPINEPHRINE 1:200,000 20 ML PF ONE (07:37)
[2023-07-06] MEDS: BUPIVACAINE 0.25% PF 30 ML VIAL ONE (07:37)
[2023-07-06] MEDS: ONDANSETRON INJ 2 MG/ML 2 ML VIAL IV PRN (07:47)
[2023-07-06] MEDS: ePHEDrine sulfate 50 MG/ML AMP ONE (10:05)
[2023-07-06] MEDS: fentaNYL citrate PF 100 MCG/2 ML VIAL EPI STA (10:05)
[2023-07-06] MEDS: LIDOCAINE 2%/EPINEPHRINE 1:200,000 20 ML PF EPI STA (10:05)
[2023-07-06] MEDS: BUPIVACAINE 0.25% PF 30 ML VIAL EPI STA (10:05)
[2023-07-06] MEDS: SODIUM CHLORIDE 0.9% PF INJ 10 ML VIAL ONE (10:05)
[2023-07-06] MEDS: SODIUM CHLORIDE 0.9% PF INJ 10 ML VIAL EPI STA (10:06)
[2023-07-06] MEDS: OXYTOCIN 30 UNITS/NSS 30 UNITS/500 ML BAG IV PRN (10:22)
[2023-07-06] MEDS ORDERED: DIPHTHER/TETAN/PERTUS Vaccine (Tdap, Adol/Adult) 0.5mL IM ONE (12:31)
[2023-07-06] MEDS ORDERED: ACETAMINOPHEN 325 MG TAB PO PRN (12:31)
[2023-07-06] MEDS ORDERED: HYDROCORTISONE ACETATE 25 MG SUPP PR PRN (12:31)
[2023-07-06] MEDS ORDERED: bisacodyL 10 MG SUPP PR PRN (12:31)
--- NOTE | 2023-07-06 12:33 | Delivery Summary ---
Vaginal Delivery Summary Date of Service July 06, 2023 Vaginal Delivery Summary Progressed to 10 cm dilated 100% effaced +2 station pushed over intact perineum with epidural anesthesia and delivered a viable with weight and Apgars pending. Head of the delivered without difficulty and no nuchal cord noted. Body and shoulders quickly followed. was noted be vigorous upon delivery and 1 minute delayed cord clamping was initiated. Cord was then double clamped and cut. remained maternal abdomen. Cord blood obtained. Attention was turned delivery placenta was delivered intact three-vessel cord with gentle cord traction. On inspection of perineum vagina and cervix are noted to be no lacerations. Needle sponge and instrument counts were correct at the completion of the case. Both mother and stable in the immediate postdelivery period. Estimated blood loss of 100 mL and no complications noted [facility] Vaginal Delivery Charge Delivery Type Details:
--- NOTE | 2023-07-06 12:53 | Anesthesia Procedure Note ---
Date of Service July 06, 2023 Anesthesia Post Epidural Note Vital Signs Vital Signs: Temp Pulse Resp BP Pulse Ox O2 Del Method 36.8 C 93 H 18 132/69 98 Room Air 07/06/23 12:15 07/06/23 12:50 07/06/23 12:30 07/06/23 12:50 07/06/23 12:14 07/06/23 02:18 Pain Intensity Abdomen: Pain Intensity: 9 Notes Mental Status: alert / awake / arousable and participated in evaluation Nausea / Vomiting: adequately controlled Pain: adequately controlled Airway Patency, RR, SpO2: stable & adequate BP & HR: stable & adequate Hydration State: stable & adequate Neuraxial Anesthesia: was administered and sensory block is resolving Anesthetic Complications: no major complications apparent Epidural: Removed without complications and With tip intact
[2023-07-06] MEDS: IBUPROFEN 600 MG TAB PO PRN (14:58)
[2023-07-06] MEDS: BENZOCAINE 20% SPRY 85 APPLN/85 GM CAN EXT PRN (14:58)
[2023-07-06] MEDS: DOCUSATE SODIUM 100 MG CAP PO SCH (20:48)
--- NOTE | 2023-07-07 06:12 | Obstetrical Progress Note ---
Date of Service July 07, 2023 Assessment & Plan (1) Encounter for care after hospital delivery: Plan: 22 y/o post- day 1 s/p Continue post care Feels well today. Encourage ambulation and Hgb stable Rubella equivocal, MMR vaccine ordered Pain well controlled with ibuprofen Admission and Anticipated Discharge Date Admission Date: July 06, 2023 Supervising Physician Co-Signing Physician Notes Patient seen with resident and agree with the above findings and plan. Stable for discharge. Subjective 22 y/o post- day 1 s/p Ambulation: ambulating normally Voiding: no voiding problems Passing Gas:: Yes Diet Tolerance:: regular diet Lochia:: Small Feeding Type: Current Pain Level: mild Resting comfortably this AM in NAD. Denies MILLS, CP, SOB, N/V/D, LE pain/swelling. Review of Systems Review of Systems: as per HPI Physical Exam Physical Exam: General: patient resting comfortably, NAD, non-toxic in appearance, AA&O x 4, answers questions appropriately. Skin: warm, dry, intact HEENT: NC/AT, anicteric sclera, conjunctiva without injection, moist mucus membranes. Heart: +S1/S2, regular, no m/r/g Lungs: equal air entry bilaterally, no rales/rhonchi/wheezes Abd: +BS, soft, NT/ND, uterine fundus firm at umbilicus Ext: warm, no clubbing/cyanosis or edema, Nany's neg. Neuro: nonfocal, patient AA&O x 4, speech intact, no facial droop, moving all extremities on command. Results & Data Vital Signs (Past 12 Hours) Vital Signs Temp Pulse Resp BP O2 Del Method 07/07/23 04:20 36.9 C 71 16 123/81 Room Air 07/07/23 00:05 37.0 C 91 H 16 109/72 Room Air 07/07/23 00:05 Room Air Resident Activity Tracking Resident Involvement: Resident Care Provided Care Provided: OB Delivery
[2023-07-07] MEDS: FERROUS SULFATE 325 MG TAB PO SCH (09:09)
[2023-07-07] MEDS: PRENATAL VITAMIN 1 TAB PO SCH (09:09)
[2023-07-07] MEDS: MEASLES, MUMPS & RUBELLA VIRUS VACCINE (MMR) 0.5ML VIAL SQ ONE (13:55)
[2023-07-07] MEDS ORDERED: bisacodyL 5 MG TABEC PO SCH (20:00)
== END 2023-07-07 15:00 | disposition home or self-care (01) | DRG 807 ==
LOC: OPB 01:55 → 4S1 01:58 → 4E2 14:45

== ENCOUNTER 2024-11-17 12:24 | Observation (INO) ==
[2024-11-17] MEDS: METOCLOPRAMIDE HCL INJ 5 MG/ML 2 ML VIAL IV STA (13:40)
[2024-11-17] MEDS: diphenhydrAMINE 50 MG/ML VIAL IV STA ×2 (13:40→17:10)
--- NOTE | 2024-11-17 13:52 | Emergency Department Note ---
Impression & Plan Intractable nausea and vomiting, Abdominal pain, with 28 completed weeks gestation ED Provider Note CHIEF COMPLAINT: Nausea and vomiting HISTORY OF PRESENT ILLNESS: This 24-year-old female patient presents to the emergency department via private vehicle for evaluation of nausea and vomiting. This is a G5, P3 patient. She states the nausea and vomiting as well as some right sided abdominal pain started yesterday at about noon. She was seen by her CRANE HELPER prior to arrival in the emergency department due to reported contractions. She states she is 28 or 29 weeks . The patient does report a history of gastroparesis and states she has not been taking her MiraLAX for the past few days. She states she did have a hard bowel movement followed by diarrhea while in L&D during that evaluation. She denies any dysuria, urinary frequency, urinary hesitancy, hematuria. She states the pain does radiate around the back on the right side. She denies any fever. No chest pain or dyspnea. She states that she was given Zofran, Tylenol, fluids, Phenergan, and Pepcid on L&D. She states the Phenergan did seem to help. She reports history of cholecystectomy and appendectomy. History provided by: Patient REVIEW OF SYSTEMS: A 10 system review of systems was performed with positives and pertinent negatives listed in the history of present illness. All other systems were reviewed and are negative. ALLERGIES: Lactose, red dye PHYSICAL EXAM: VITALS: Vitals are noted on the nurse's note and reviewed by myself. GENERAL: This is a 24-year-old female, in no acute distress, nondiaphoretic, well-developed well-nourished. SKIN: The skin was without rashes, erythema, edema, or bruising. There is no tenting of the skin. Capillary refill less than 2 seconds. HEAD: Normocephalic atraumatic. EYES: Conjunctivae without injection, sclerae without icterus. MOUTH: Mucous membranes dry. NECK: Supple without nuchal rigidity. No lymphadenopathy. Cervical spine is nontender. No JVD. HEART: Regular rate and rhythm without murmurs gallops or rubs. LUNGS: Clear to auscultation bilaterally without wheezes, rales or rhonchi. No retractions or accessory muscle use. ABDOMEN: Gravid uterus. Positive bowel sounds x 4. RUQ tenderness. Larkin sign negative. No guarding or rebound tenderness. MUSCULOSKELETAL: No muscle atrophy, erythema, or edema noted. Full range of motion without joint tenderness in all extremities. No tenderness to palpation. Normal gait. Strength 5/5 throughout. NEURO: Patient was alert and oriented to person place and time. No focal neurological deficits. An order was placed for continuous vehicle monitor technician. The monitor showed a normal sinus rhythm at a ventricular rate of 70 bpm, per my interpretation. MRI of the abdomen without acute abnormalities. EMERGENCY DEPARTMENT COURSE: The patient was evaluated as above. The patient presents to the emergency department at the recommendation of CRANE HELPER for further evaluation of her nausea and vomiting. The patient does have a history of cholecystectomy and appendectomy. CRANE HELPER would like her evaluated for her symptoms. They did complete evaluation at L&D which did not reveal any concerns with baby. Patient seen in the emergency department. She has already had labs which were reviewed. Labs at L&D did show leukocytosis of 14.34. No concerning anemia or thrombocytopenia. Creatinine 0.51. BUN is 7. Anion gap is mildly elevated at 12. Electrolytes without acute concerning abnormalities. Lipase was added by me. This was 16. Urinalysis concerning for 4+ ketones, trace leukocyte esterase, epithelial cells. No clear evidence of infection. Patient was given additional 1 L bolus of IV saline solution here in the emergency department. (She had already received 1 L lactated Ringer's at L&D and was started on maintenance fluids). Patient was medicated with IV Reglan and Benadryl due to her ongoing retching during my examination. Case was discussed with the attending physician. MRI of the abdomen was completed due to the patient's complaints of right upper quadrant abdominal pain. MRI was without acute concerning abnormalities. The patient was updated. She is continue to complain of right upper quadrant epigastric pain. She was medicated with additional IV acetaminophen and Benadryl, she notes the Benadryl did seem to have helped earlier in the day. The patient has no longer had retching. She states she did vomit several times during her MRI. She states she believes she needs an enema, concerned that her symptoms are related to constipation. Patient was provided a fleets enema. I discussed the case with Dr. Gottlieb, CRANE HELPER mental retardation nurse. He agreed to admit the patient. He does plan to consult with medicine. Unclear cause of the patient's symptoms. Did add on a urine drug screen which is pending at the time of admission. Please see CRANE HELPER and hospitalist dictation regarding ongoing management and final disposition of this patient. This visit is during a period of high volume and high acuity in the emergency department. I attest that I have personally reviewed the patient medication list. I attest that I have reviewed the patient's blood pressure and it was found to be normal GCS: 15 In the evaluation and treatment of this patient the following differential diagnoses were entertained: Gastroenteritis, food borne illness, infections, appendicitis, hyperemesis gravidarum, diverticulitis, inflammatory bowel dise ase, obstruction, GI bleed, biliary pathology, volvulus, as well as other pathologies. The chart was completed utilizing [employer] Speech voice recognition software. Grammatical errors, random word insertions, pronoun errors, and incomplete sentences are an occasional consequence of this system due to software limitations, ambient noise, and hardware issues. Any formal questions or concerns about the content, text, or information contained within the body of this dictation should be directly addressed to the provider for clarification. Past Med/Surg History Problem List (Updated 11/17/24 @ 17:03 by Dariela Olivarez PA-C) with 28 completed weeks gestation (Acute) Abdominal pain (Acute) Intractable nausea and vomiting (Acute) Not immune to hepatitis B virus Encounter for anatomic survey Early stage of Encounter for supervision of normal in multigravida Medical History PTSD (post-traumatic stress disorder) Gastroenteritis Constipation Anemia Asthma Chronic constipation Lactose intolerance Varicella vaccination Surgical History S/P endoscopy S/P myringotomy with insertion of tube S/P dilatation and curettage S/P foot surgery, left foot replacement S/P cholecystectomy S/P appendectomy S/P tonsillectomy and adenoidectomy Family History Grandmother (Maternal) Thyroid cancer Heart disease Grandfather (Maternal) Heart disease Denies family history of Ovarian cancer Breast cancer Colorectal cancer Social History Smoking Status: Never smoker Tobacco Type: Cigarettes and E-cigarettes / Vaping Second Hand Exposure: No; Do You Dip or Chew Tobacco: No; Hx Alcohol Use: No Hx Substance Use: No Preferred Language: Estonian Communication Ability: Effective Hyperion Developer Required: No Beliefs That Will Affect Care: None marital status: Single marital status details: Gabi Moy(26) [phone] Current Living Situation: Family and Significant Other Current Living Situation Comment: lives with FOB and 3 kids, no pets current occupational status: unemployed and student current occupation: [employer] student Feels Safe at Home: Yes Diet: regular Gender Identity: Female Assistive Devices: Glasses Allergies Allergies Allergy/AdvReac Type Severity Reaction Status Date / Time lactose Allergy Severe Gastrointestinal Verified 10/31/24 10:41 Upset red dye Allergy Severe Difficulty Verified 10/31/24 10:41 Breathing Home Meds Home Medications Medication Instructions Recorded Confirmed docusate sodium 100 mg capsule 100 mg PO BID 01/23/23 11/17/24 (Colace) polyethylene glycol 3350 17 gram 17 g PO DAILY 01/23/23 11/17/24 oral powder packet (Miralax) albuterol sulfate 90 mcg/actuation See Rx Instructions .Route .COMPLEX 01/27/23 11/17/24 aerosol inhaler 21-iron fu-folic acid 0 mg PO DAILY 07/05/24 11/17/24 [ Complete] Previous Rx's Medication Instructions Recorded ondansetron 4 mg disintegrating 4 mg PO Q6H #20 tabs 10/31/24 tablet Results & Data (ED) Vital Signs Vital Signs - 24 hr 11/17/24 12:31 11/17/24 13:00 11/17/24 13:05 Temperature 36.9 C Temperature Source Oral Pulse Rate 82 69 120 H Pulse Rate from SpO2 Sensor Respiratory Rate 18 18 Respiratory Effort / Characteristics Non-Labored Spontaneous Splinting (from pain) Respiratory Depth Normal Blood Pressure 137/84 136/82 Blood Pressure Mean 101 98 Pulse Oximetry 100 99 Oxygen Delivery Method Room Air Sepsis Recent Fever Within 48 Hours No Sepsis New/Unexplained Change in Mental Status No Sepsis Action Taken by Nursing No Action Required 11/17/24 13:31 11/17/24 14:08 11/17/24 14:26 Temperature Temperature Source Pulse Rate 98 H 69 77 Pulse Rate from SpO2 Sensor 68 81 Respiratory Rate 15 23 15 Respiratory Effort / Characteristics Respiratory Depth Blood Pressure 161/63 H 116/85 Blood Pressure Mean 89 95 Pulse Oximetry 99 100 100 Oxygen Delivery Method Sepsis Recent Fever Within 48 Hours Sepsis New/Unexplained Change in Mental Status Sepsis Action Taken by Nursing 11/17/24 14:29 11/17/24 14:32 11/17/24 14:53 Temperature Temperature Source Pulse Rate 94 H Pulse Rate from SpO2 Sensor 85 Respiratory Rate 18 Respiratory Effort / Characteristics Respiratory Depth Blood Pressure 132/76 Blood Pressure Mean 100 Pulse Oximetry 100 100 Oxygen Delivery Method Sepsis Recent Fever Within 48 Hours Sepsis New/Unexplained Change in Mental Status Sepsis Action Taken by Nursing 11/17/24 15:11 11/17/24 15:24 Temperature Temperature Source Pulse Rate Pulse Rate from SpO2 Sensor 88 Respiratory Rate Respiratory Effort / Characteristics Respiratory Depth Blood Pressure Blood Pressure Mean Pulse Oximetry 100 100 Oxygen Delivery Method Sepsis Recent Fever Within 48 Hours Sepsis New/Unexplained Change in Mental Status Sepsis Action Taken by Nursing Laboratory Data Lab Results 11/17/24 11/17/24 Range/Units 06:53 13:30 Lipase 16 (11-82) U/L Urine Color Yellow Urine Appearance Clear (Clear) Urine pH 6.5 (4.5-7.5) Ur Specific [place] 1.027 (1.000-1.030) Urine Protein Trace H (Negative) Urine Glucose (UA) Negative (Negative) Urine Ketones 4+ H (Negative) Urine Blood Negative (Negative) Urine Nitrite Negative (Negative) Urine Bilirubin Negative (Negative) Urine Urobilinogen Negative (Negative) Ur Leukocyte Esterase Trace H (Negative) Urine WBC (Auto) 0-5 (0-5) /hpf Urine RBC (Auto) 0-2 (0-2) /hpf U Hyaline Cast (Auto) 0-2 (0-2) /lpf U Epithel Cells (Auto) 3-5 H (0-2) /hpf Urine Bacteria (Auto) None Seen (None Seen) Urine Comment Administered Medications Discontinued Medications Diphenhydramine HCl (Diphenhydramine 50 Mg/Ml Vial) 25 mg IV NOW STA Stop: 11/17/24 13:22 Last Admin: 11/17/24 13:40 Dose: 25 mg Documented By: DORINDA Sodium Chloride (Nss) 1,000 mls @ 999 mls/hr IV .Q1H1M ONE Stop: 11/17/24 15:07 Last Admin: 11/17/24 14:09 Dose: 999 mls/hr Documented By: DORINDA Metoclopramide HCl (Metoclopramide Hcl Inj 5 Mg/Ml 2 Ml Vial) 10 mg IV NOW STA Stop: 11/17/24 13:22 Last Admin: 11/17/24 13:40 Dose: 10 mg Documented By: DORINDA Ondansetron HCl (Ondansetron Inj 2 Mg/Ml 2 Ml Vial) 4 mg IV NOW STA Stop: 11/17/24 14:54 Last Admin: 11/17/24 15:25 Dose: 4 mg Documented By: Sodium Biphosphate/Sodium Phosphate (Sod Phosphate/Sod Biphosphate Enema 132 Ml Btl) 132 ml [place] NOW STA Stop: 11/17/24 16:51 Last Admin: 11/17/24 16:58 Dose: 132 ml Documented By: ML Imaging Data Radiologist's Impression: Abdomen MRI 11/17/24 14:08 Clinical history: Abdominal pain. Nausea and vomiting Technique: Axial and coronal fiesta and T2 magnetic resonance images were obtained of the abdomen without gadolinium contrast. Additional sequences were not obtained Findings: There is an intrauterine in cephalic presentation. The placenta is fundal and posterior in location. No obvious anomaly is seen on this limited study. There is no apparent 1 cm follicle in the right ovary. The right ovarian vein appears dilated, without definite thrombosis No definite liver mass lesion is identified. There is no sign of cirrhosis or significant fatty infiltration. The gallbladder is decompressed are absent. No bile duct dilatation is noted. The pancreatic duct is of normal caliber. There is no sign of acute pancreatitis. No definite pancreatic mass lesion is seen The spleen is of normal size. No focal splenic lesion is evident. The adrenal glands appear unremarkable. No renal mass lesion is seen. There is no hydronephrosis The visualized aorta is of normal caliber. No adenopathy is seen. No ascites or pleural effusions are noted. No definite abnormality of the abdominal wall musculature is identified. No hernia is seen. There is no sign of bowel obstruction The appendix is not clearly identified, with no definite sign of appendicitis Impression: 1. Limited examination with only a few sequences obtained 2. Intrauterine in cephalic presentation. There is no placenta previa and no obvious anomaly is seen 3. Small 1 cm follicle in the right ovary 4. Dilated right ovarian vein, without definite thrombosis. This could be due to venous congestion and is often seen in 5. Decompressed or absent gallbladder Electronically signed by Kenroy Bowser 11-17-2024 4:44 PM Discharge Plan Visit Data Chief Complaint: Illness Stated Complaint: ILLNESS ED Provider: Brian [facility] ED Midlevel Provider: Dariela Olivarez Discharge Problem: Intractable nausea and vomiting, Abdominal pain, with 28 completed weeks gestation Patient Disposition: Admitted As Inpatient Condition: Good Forms Stand Alone Forms: My [facility] Prescriptions Prescriptions: No Action 21-iron fu-folic acid [ Complete] 0 mg PO DAILY Patient Comments: otc unknown dose ondansetron 4 mg tablet,disintegrating 4 mg PO Q6H Qty: 20 0RF polyethylene glycol 3350 [Miralax] 17 gram Powder In Packet 17 g PO DAILY docusate sodium [Colace] 100 mg Capsule 100 mg PO BID albuterol sulfate 90 mcg/actuation HFA aerosol inhaler See Rx Instructions .ROUTE .COMPLEX Rx Instructions: Inhale 2 puffs by mouth and INTO THE LUNGS every 4 hours if needed Referrals Referrals: Vikram Gomez DO [Primary Care Provider] -
[2024-11-17 14:01] LABS: Appearance Urine Clear (Clear); Bacteria Urine Automated None Seen (None Seen); Cast Urine Automated 0-2 /lpf (0-2); Glucose Urine UA Negative (Negative); RBC Urine Automated 0-2 /hpf (0-2); WBC Urine Automated 0-5 /hpf (0-5)
[2024-11-17] MEDS: SODIUM CHLORIDE 0.9% 1,000 ML IV ONE (14:09)
[2024-11-17] MEDS: ONDANSETRON INJ 2 MG/ML 2 ML VIAL IV STA (15:25)
--- NOTE | 2024-11-17 16:44 | Magnetic Resonance Report ---
Clinical history: Abdominal pain. Nausea and vomiting Technique: Axial and coronal fiesta and T2 magnetic resonance images were obtained of the abdomen without gadolinium contrast. Additional sequences were not obtained Findings: There is an intrauterine in cephalic presentation. The placenta is fundal and posterior in location. No obvious anomaly is seen on this limited study. There is no apparent 1 cm follicle in the right ovary. The right ovarian vein appears dilated, without definite thrombosis No definite liver mass lesion is identified. There is no sign of cirrhosis or significant fatty infiltration. The gallbladder is decompressed are absent. No bile duct dilatation is noted. The pancreatic duct is of normal caliber. There is no sign of acute pancreatitis. No definite pancreatic mass lesion is seen The spleen is of normal size. No focal splenic lesion is evident. The adrenal glands appear unremarkable. No renal mass lesion is seen. There is no hydronephrosis The visualized aorta is of normal caliber. No adenopathy is seen. No ascites or pleural effusions are noted. No definite abnormality of the abdominal wall musculature is identified. No hernia is seen. There is no sign of bowel obstruction The appendix is not clearly identified, with no definite sign of appendicitis Impression: 1. Limited examination with only a few sequences obtained 2. Intrauterine in cephalic presentation. There is no placenta previa and no obvious anomaly is seen 3. Small 1 cm follicle in the right ovary 4. Dilated right ovarian vein, without definite thrombosis. This could be due to venous congestion and is often seen in 5. Decompressed or absent gallbladder Electronically signed by Kenroy Bowser 11-17-2024 4:44 PM
[2024-11-17] MEDS: SOD PHOSPHATE/SOD BIPHOSPHATE ENEMA 132 ML BTL PR STA (16:58)
[2024-11-17] MEDS: ACETAMINOPHEN 1,000 MG/100 ML VIAL IV STA (17:10)
[2024-11-17] MEDS ORDERED: ALBUTEROL HFA 8 GM INHALER INH PRN (19:23)
[2024-11-17] MEDS: DOCUSATE SODIUM 100 MG CAP PO SCH (20:38)
[2024-11-17] MEDS: LACTATED RINGER'S 1,000 ML IV PRN (20:39)
[2024-11-17] MEDS: FAMOTIDINE 20MG IV PUSH 20 MG/5 ML SYR IV SCH (20:39)
[2024-11-17] MEDS: ONDANSETRON INJ 2 MG/ML 2 ML VIAL IV PRN (20:41)
[2024-11-17] MEDS: ONDANSETRON 4 MG OD TAB PO SCH (21:41)
--- NOTE | 2024-11-17 22:10 | Hospitalist Consultation ---
Date of Consultation November 17, 2024 Assessment & Plan (1) with 28 completed weeks gestation: (2) Intractable nausea and vomiting: (3) Constipation: Plan Pt is a 24 yo female currently at 28 weeks gestation with a past med hx of GERD, chronic constipation, and hx of prior hyperemesis during who presents to the hospital on 11/17 for intractable nausea and vomiting. #Nausea and vomiting #Acute on chronic constipation - constipated possibly exacerbated by chronic zofran use due to daily morning episodes of vomiting - suspect N/V secondary to progressive constipation, abd MRI without acute abnormality - pt reports relief of vomiting with phenergan; recommend continuing to use this prn over zofran - added protonix 40 mg IV BID along with ordered pepcid IV - pt NPO at current with ice chips/sips, requested some poweraid which is permissible (would avoid anything carbonated) - would maintain NPO otherwise tonight, if she does well overnight could trial clear liquid diet - would optimize bowel regime; miralax 34 gm daily + senna + prn enema as needed - if not improving or develops fever/chills/dysuria, consider UTI tx as she does note some abd cramping with urination Supervising Physician Co-Signing Physician Notes Attending addendum: The patient is a 24-year-old female with past medical history including GERD, chronic constipation, and history of prior hyperemesis during , who presented to the emergency department for intractable nausea and vomiting. She is , 28 weeks gestation. Intractable nausea and vomiting/acute on chronic constipation- MRI of abdomen without acute findings Optimize bowel regimen: MiraLAX, senna, as needed enemas Continues n.p.o. overnight, advance to clear liquid diet in a.m. as tolerated. Protonix and famotidine IV as noted Phenergan IV as noted IVF's check a CBCD, CMP and Mag level in AM History of Present Illness Reason for Consultation: Nausea/vomiting Requesting Physician: Dr Gottlieb Attending Physician: Ozzie Gottlieb MD, FACOG History of Present Illness Pt is a 24 yo female currently at 28 weeks gestation with a past med hx of GERD, chronic constipation, and hx of prior hyperemesis during who presents to the hospital on 11/17 for intractable nausea and vomiting. Pt states she had a similar episode with her last where she had intractable nausea dn vomiting for nearly a week and states she was in the hospital for at least 5 days to get symptoms under control. She states that with this she has been having daily nausea and vomiting with several episodes of vomiting each morning prior to taking her nausea medications. She states that zofran does not seem to help very much any more but that Phenergan works well for her. She states yesterday she had her usual start of the morning with vomiting but then from around noon onwards had vomiting every 5-10 minutes that did not go away with medication. She states that she has also been very constipated this past week. She states her last more normal volume BM was about a week ago and since then she has only been able to pass small hunter. She states she feels she is so backed up that that is why she is vomiting, she feels like "food just has no where to go." She states the enema in the ED did seem to help a bit and that at home she had been doing one cap of miralax TID without relief. She does note that she had some small specks of blood in the vomit. She denies fevers or chills. Does have some RUQ pain at times but has no appendix or GB. She states she does also have some lower abdominal cramping with urination but no burning with urination or overt blood in the urine. No chest pain or SOB. Allergies Allergy/AdvReac Type Severity Reaction Status Date / Time lactose Allergy Severe Gastrointestinal Verified 10/31/24 10:41 Upset red dye Allergy Severe Difficulty Verified 10/31/24 10:41 Breathing Home Medications Medication Instructions Recorded Confirmed Type docusate sodium 100 mg capsule 100 mg PO BID 01/23/23 11/17/24 History (Colace) polyethylene glycol 3350 17 gram 17 g PO DAILY 01/23/23 11/17/24 History oral powder packet (Miralax) albuterol sulfate 90 mcg/actuation See Rx Instructions .Route .COMPLEX 01/27/23 11/17/24 History aerosol inhaler 21-iron fu-folic acid 0 mg PO DAILY 07/05/24 11/17/24 History [ Complete] ondansetron 4 mg disintegrating 4 mg PO Q6H #20 tabs 10/31/24 11/17/24 Rx tablet Patient History Medical History PTSD (post-traumatic stress disorder) Gastroenteritis Constipation Anemia Asthma Chronic constipation Lactose intolerance Varicella vaccination Surgical History S/P endoscopy S/P myringotomy with insertion of tube S/P dilatation and curettage S/P foot surgery, left foot replacement S/P cholecystectomy S/P appendectomy S/P tonsillectomy and adenoidectomy Family History Grandmother (Maternal) Thyroid cancer Heart disease Grandfather (Maternal) Heart disease Denies family history of Ovarian cancer Breast cancer Colorectal cancer Social History Smoking Status: Never smoker Tobacco Type: Cigarettes and E-cigarettes / Vaping Second Hand Exposure: No; Do You Dip or Chew Tobacco: No; Tobacco Cessation Education Requested by Patient: No Hx Alcohol Use: No Hx Substance Use: No Preferred Language: Maltese Communication Ability: Effective Water Quality Analyst Required: No Beliefs That Will Affect Care: None marital status: Single marital status details: Gabi Moy(26) [phone] Current Living Situation: Spouse and Family Current Living Situation Comment: lives with FOFlorian and 3 kids, no pets current occupational status: unemployed and student current occupation: [employer] student Other Information That Helps Us Care for You: No Feels Safe at Home: Yes Safety Concerns: Feels Safe At This Time Diet: regular Gender Identity: Female Assistive Devices: None Review of Systems Review of Systems: Per HPI. Physical Exam Physical Exam: General: Alert and oriented, no acute distress, sitting up in bed comfortable appearing HEENT: Normocephalic, moist oral mucosa, Cardio: Regular rate and rhythm, no murmur, Resp: Lungs clear to auscultation b/l, no wheezes or rhonchi, GI: Soft and nontender, hypoactive Skin: Warm, pink, dry, Results & Data Results & Data Vital Signs (Past 12 Hours) Vital Signs Temp Pulse Pulse Pulse Resp BP BP 11/17/24 20:50 36.7 C 88 18 138/87 11/17/24 20:19 82 20 122/59 L 11/17/24 18:52 82 17 118/78 11/17/24 17:57 11/17/24 17:42 84 11/17/24 17:41 89 11/17/24 17:30 79 17 11/17/24 17:24 96 H 16 11/17/24 17:12 83 17 11/17/24 17:10 150/91 H 11/17/24 16:57 137/80 11/17/24 15:24 11/17/24 15:11 11/17/24 14:53 11/17/24 14:32 132/76 11/17/24 14:29 94 H 18 11/17/24 14:26 77 15 11/17/24 14:08 69 23 116/85 11/17/24 13:31 98 H 15 161/63 H 11/17/24 13:05 120 H 11/17/24 13:00 69 18 136/82 11/17/24 12:31 36.9 C 82 18 137/84 Pulse Ox O2 Del Method 11/17/24 20:50 99 Room Air 11/17/24 20:19 99 Room Air 11/17/24 18:52 100 Room Air 11/17/24 17:57 100 11/17/24 17:42 99 11/17/24 17:41 11/17/24 17:30 100 11/17/24 17:24 100 11/17/24 17:12 100 11/17/24 17:10 11/17/24 16:57 11/17/24 15:24 100 11/17/24 15:11 100 11/17/24 14:53 100 11/17/24 14:32 11/17/24 14:29 100 11/17/24 14:26 100 11/17/24 14:08 100 11/17/24 13:31 99 11/17/24 13:05 11/17/24 13:00 99 11/17/24 12:31 100 Room Air Resident Activity Tracking Resident Involvement: Resident Care Provided Care Provided: Adult Hospital Medicine
[2024-11-17] MEDS: PANTOprazole 40 MG/10 ML SYR IV SCH (22:59)
[2024-11-17] MEDS: PROMETHAZINE 25 MG/51 ML BAG IV PRN (23:22)
[2024-11-17] MEDS: SENNA 8.6 MG TAB PO SCH (23:51)
[2024-11-18] MEDS: METOCLOPRAMIDE HCL INJ 5 MG/ML 2 ML VIAL IV STA (03:30)
--- NOTE | 2024-11-18 04:32 | Billing Data ---
Date of Service November 18, 2024 Coding Level of Care Code 32484 IN/OBS CONSULT LVL 3,45M
[2024-11-18] MEDS: CALCIUM CARBONATE 500 MG CHEWABLE TAB PO PRN (06:19)
[2024-11-18] MEDS ORDERED: ACETAMINOPHEN 325 MG TAB PO PRN (08:32)
[2024-11-18] MEDS ORDERED: POLYETHYLENE (MIRALAX) 17 GM PACK PO SCH (09:00)
--- NOTE | 2024-11-18 09:20 | Obstetrical Progress Note ---
Date of Service November 18, 2024 Assessment & Plan (1) Intractable nausea and vomiting: (2) with 28 completed weeks gestation: Plan Hospitalist following, believe N/V is secondary to constipation Remain NPO PRN Phenergan for nausea/vomiting Optimize bowel regimen Ordered Doppler of RLE, pending UA culture pending Admission and Anticipated Discharge Date Admission Date: November 17, 2024 Supervising Physician Co-Signing Physician Notes Attending addendum: The patient is a 24-year-old female with past medical history including GERD, chronic constipation, and history of prior hyperemesis during , who presented to the emergency department for intractable nausea and vomiting. She is , 28 weeks gestation. Intractable nausea and vomiting/acute on chronic constipation- MRI of abdomen without acute findings Optimize bowel regimen: MiraLAX, senna, as needed enemas Continues n.p.o. overnight, advance to clear liquid diet in a.m. as tolerated. Protonix and famotidine IV as noted Phenergan IV as noted IVF's check a CBCD, CMP and Mag level in AM Subjective 28 weeks confirmed via ultrasound. Here due to nausea and vomiting. Patient states she has not had bowel movements for a week. Day before yesterday she started having diffuse abdominal pain and it felt like she was having contrations. She also has had nausea and vomiting. Reports some blood in her vomit this morning. She feels very bloated. Her last full meal was 4 days ago. Denies loss of fluid or blood through vagina. Review of Systems Review of Systems: All systems reviewed & are unremarkable except as noted in HPI & below Physical Exam Constitutional: + ill appearing Respiratory: normal respiratory effort, lungs clear to auscultation Cardiovascular: RRR, no murmur, no edema Gastrointestinal (Abdomen): Inspection/Auscultation: abdomen normal to inspection and normal bowel sounds Percussion/Palpation: + abdomen tender (mild tenderness in RLQ) and abdomen soft +gravid Skin: no rashes, warm and dry Psychiatric: A+Ox3, euthymic affect Lymphatic: no LE edema, pain with Nany's sign on RLE, pain upon palpation of R calf Results & Data Vital Signs (Past 12 Hours) Vital Signs Temp Pulse Resp BP Pulse Ox O2 Del Method 11/18/24 07:06 37.0 C 82 18 143/84 H 100 Room Air 11/18/24 03:25 36.7 C 92 H 18 138/82 100 Room Air 11/17/24 23:06 36.7 C 67 18 126/81 100 Room Air Laboratory Results OB Labs: Blood Type O Positive 07/27/24 Antibody Screen NEGATIVE 07/27/24 Hgb 12.1 g/dl (12.0-16.0) 07/27/24 Hct 36.6 % (37.0-47.0) L 07/27/24 MCV 79.9 fL (80.0-100.0) L 07/27/24 Plt Count 352 K/uL (130-400) 07/27/24 Rubella IgG Antibody Immune (Immune) 07/27/24 RPR Nonreactive (Nonreactive) 01/26/23 Treponema pallidum Ab Negative (Negative) 07/27/24 Hep Bs Antigen Negative (Negative) 07/27/24 Hep Bs Antigen NON-REACTIVE (NON-REACTIVE) 01/26/23 Hepatitis C Antibody Negative (Negative) 07/27/24 Hepatitis C Ab (EIA) NON-REACTIVE (NON-REACTIVE) 01/26/23 HIV 1&2 Ab/P24 Ag 4thGn Negative (Negative) 07/27/24 HIV (1&2) Ag & Ab Conf NON-REACTIVE (NON-REACTIVE) 01/26/23 Glucose 1 Hr 50 gm 78 mg/dl (70-130) 09/08/24 OB Optional Labs: Chlamydia trachomatis RNA Not Detected (NotDetected) 07/27/24 Neisseria gonorrhoeae RNA Not Detected (NotDetected) 07/27/24 Resident Activity Tracking Resident Involvement: Resident Care Provided Care Provided: OB Delivery
[2024-11-18] MEDS: ACETAMINOPHEN 1,000 MG/100 ML VIAL IV STA (09:32)
[2024-11-18] MEDS: POLYETHYLENE (MIRALAX) 17 GM PACK PO SCH (09:35)
[2024-11-18] MEDS: PRENATAL VITAMIN 1 TAB PO SCH (09:36)
--- NOTE | 2024-11-18 10:14 | Hospitalist Progress Note ---
Date of Service November 18, 2024 Assessment & Plan (1) with 28 completed weeks gestation: (2) Intractable nausea and vomiting: (3) Constipation: Plan Pt is a 24 yo female currently at 28 weeks gestation with a past med hx of GERD, chronic constipation, and hx of prior hyperemesis during who presents to the hospital on 11/17 for intractable nausea and vomiting. #Nausea and vomiting #Acute on chronic constipation -Still nauseous and constipated this morning - pt reports relief of vomiting with phenergan; recommend continuing to use this prn over zofran - added protonix 40 mg IV BID along with ordered pepcid IV - would optimize bowel regime; miralax 34 gm daily + senna + prn enema as needed , Add Dulcolax suppository -Obtain urinalysis Admission and Anticipated Discharge Date Admission Date: November 17, 2024 Subjective patient seen and examined, still feeling nauseous, says Boo works better Review of Systems Review of Systems: All systems reviewed are negative, apart from the ones contained in the history. Physical Exam Physical Exam: The patient is awake, alert and oriented 3, well developed and well nourished, normocephalic and atraumatic, lying in bed and in no acute distress. HEENT--PERRL, EOMI, mucous membranes and oropharynx mildly dry Neck--supple. No JVD. No bruits. Thyroid normal, trachea midline, no a denopathy. Heart--normal S1 and S2. No murmurs, rubs or gallops. Lungs--clear bilaterally, no respiratory distress, no accessory muscle use. Abdomen--distended Extremities--no cyanosis or clubbing. No edema. Dermatologic--normal skin turgor, normal color, no abnormal lymph nodes, no rash. Neurologic--cranial nerves II through XII grossly intact. Rheumatologic--normal range of motion. Psychiatric--normal affect. Results & Data Results & Data Vital Signs (Past 12 Hours) Vital Signs Temp Pulse Resp BP Pulse Ox O2 Del Method 11/18/24 07:06 98.6 F 82 18 143/84 H 100 Room Air 11/18/24 03:25 98.1 F 92 H 18 138/82 100 Room Air 11/17/24 23:06 98.1 F 67 18 126/81 100 Room Air PG Care Time/CCT Total # of Minutes Spent Total Time Spent with Patient: Total time spent is greater than 50% in coordination of care (as documented) at patient's floor/unit and/or counseling patient: Coding Level of Care Code 91657 SUB INP/OBS CARE 2/35MIN Diagnoses with 28 completed weeks gestation Z3A.28 Intractable nausea and vomiting R11.2 Constipation K59.00 Time Spent (min) 35
[2024-11-18 10:58] LABS: Appearance Urine Cloudy (Clear); Bacteria Urine Automated 4+ (None Seen); Epithelial Cell Urine Auto >20 /hpf (0-2); Glucose Urine UA Negative (Negative); RBC Urine Automated 0-2 /hpf (0-2); WBC Urine Automated >50 /hpf (0-5)
[2024-11-18 10:59] LABS: Cast Urine Automated 0-2 /lpf (0-2)
[2024-11-18] MEDS ORDERED: NITROFURANTOIN MONOHYDRATE 100 MG CAP PO SCH (11:45)
--- NOTE | 2024-11-18 12:14 | Ultrasound Report ---
Clinical History: Pain Technique: Venous ultrasound evaluation was performed utilizing grayscale, color Doppler and wave form evaluation. Images were also obtained with and without compression Findings: The right common femoral, superficial femoral, popliteal, and visualized calf veins demonstrate normal anechoic lumens with full compressibility. Normal flow is seen on color Doppler images. Expected waveforms were produced with augmentation maneuvers Impression: No evidence of right leg deep venous thrombosis Electronically signed by Kenroy Bowser 11-18-2024 12:14 PM
[2024-11-18] MEDS: cefTRIAXone SODIUM 2,000 MG/50 ML BAG IV SCH (14:55)
[2024-11-18] MEDS: ACETAMINOPHEN 1,000 MG/100 ML VIAL IV PRN (15:41)
[2024-11-18] MEDS: METOCLOPRAMIDE HCL INJ 5 MG/ML 2 ML VIAL IV PRN (16:02)
--- NOTE | 2024-11-19 09:24 | Hospitalist Progress Note ---
Date of Service November 19, 2024 Assessment & Plan (1) with 28 completed weeks gestation: (2) Intractable nausea and vomiting: (3) Constipation: Plan Pt is a 24 yo female currently at 28 weeks gestation with a past med hx of GERD, chronic constipation, and hx of prior hyperemesis during who presents to the hospital on 11/17 for intractable nausea and vomiting. #Nausea and vomiting #Acute on chronic constipation -Still nauseous and constipated, although said she had alittle bowel movement - pt reports relief of vomiting with phenergan; recommend continuing to use this prn over zofran - added protonix 40 mg IV BID along with ordered pepcid IV - would optimize bowel regime; miralax 34 gm daily + senna + prn enema as needed , Add Dulcolax suppository and tap water enema -Urinalysis also suspicious for UTI, will start empiric Ceftriaxone. Monitor urine cultures -Will recommend starting her on clear liquid and advance as tolerated Admission and Anticipated Discharge Date Admission Date: November 17, 2024 Subjective patient seen and examined, still feeling nauseous, had a little bowel movement Review of Systems Review of Systems: All systems reviewed are negative, apart from the ones contained in the history. Physical Exam Physical Exam: The patient is awake, alert and oriented 3, well developed and well nourished, normocephalic and atraumatic, lying in bed and in no acute distress. HEENT--PERRL, EOMI, mucous membranes and oropharynx mildly dry Neck--supple. No JVD. No bruits. Thyroid normal, trachea midline, no valentin nopathy. Heart--normal S1 and S2. No murmurs, rubs or gallops. Lungs--clear bilaterally, no respiratory distress, no accessory muscle use. Abdomen--distended Extremities--no cyanosis or clubbing. No edema. Dermatologic--normal skin turgor, normal color, no abnormal lymph nodes, no rash. Neurologic--cranial nerves II through XII grossly intact. Rheumatologic--normal range of motion. Psychiatric--normal affect. Results & Data Results & Data Vital Signs (Past 12 Hours) Vital Signs Temp Pulse Resp BP Pulse Ox O2 Del Method 11/19/24 02:41 99.1 F 82 18 138/83 100 Room Air 11/19/24 00:00 98.8 F 89 18 139/91 100 Room Air PG Care Time/CCT Total # of Minutes Spent Total Time Spent with Patient: Total time spent is greater than 50% in coordination of care (as documented) at patient's floor/unit and/or counseling patient: Coding Level of Care Code 97186 SUB INP/OBS CARE 2/35MIN Diagnoses with 28 completed weeks gestation Z3A.28 Intractable nausea and vomiting R11.2 Constipation K59.00 Time Spent (min) 35
[2024-11-19] MEDS: SOD PHOSPHATE/SOD BIPHOSPHATE ENEMA 132 ML BTL PR PRN (09:25)
[2024-11-20 05:26] VITALS: RESP 16
[2024-11-20] MEDS ORDERED: METOCLOPRAMIDE HCL 10 MG TABLET PO PRN (07:23)
--- NOTE | 2024-11-20 07:34 | Obstetrical Progress Note ---
Date of Service November 20, 2024 Assessment & Plan (1) with 28 completed weeks gestation: Plan: Joann is a 24-year-old G5, P3 currently at 29 weeks 0 days gestational age presented with nausea and vomiting in setting of severe constipation. Patient r eports that she has noted a significant improvement in symptoms as noted per HPI. Will transition to regular diet and p.o. medications. Reports Phenergan and Reglan have been working well reports that these were medications that she would commonly use prior for gastroparesis is comfortable dosing these medications. Discussed scheduling the Phenergan and taking the Reglan as needed. Reports that she has severe reflux which is significantly contributed to her nausea symptoms and was previously on Protonix prior to to control this. She reports that she has been doing well on the current protonic dosing and will continue p.o. dosing for discharge. Discussed home bowel care regimen including Colace 2 tabs twice daily, senna 1 tab at bedtime and daily and MiraLAX 17 g every 8 hours as needed which is included in discharge instructions. NST reactive within the past 24 hours and will arrange for NST for discharge today. (2) Intractable nausea and vomiting: Admission and Anticipated Discharge Date Admission Date: November 19, 2024 Subjective No acute events overnight. Patient reports that she has noted fairly significant improvement. No vomiting overnight. Reports occasional nausea but is mostly controlled with medications. Has been tolerating normal fluid intake. Reports 2 normal bowel movements over the past 24 hours and feels that bowel movements are of normal consistency at present. Discussed transition to p.o. medications and increasing diet today. Discussed discharge plan on current medications with p.o. dosing. Discussed plan for discharge this afternoon if tolerating p.o. this morning. Physical Exam Genitourinary: NST reactive within the past 24 hours Results & Data Vital Signs (Past 12 Hours) Vital Signs Temp Pulse Pulse Resp BP Pulse Ox O2 Del Method 11/20/24 05:00 36.9 C 69 16 133/66 96 Room Air 11/20/24 02:37 37.1 C 87 18 139/84 98 Room Air PG Care Time/CCT Total # of Minutes Spent Total Time Spent with Patient: Total time spent is greater than 50% in coordination of care (as documented) at patient's floor/unit and/or counseling patient: Coding Level of Care Code 64984 SUB INP/OBS CARE 2/35MIN Diagnoses with 28 completed weeks gestation Z3A.28 Intractable nausea and vomiting R11.2 CPT Codes Misx Procedure Codes - 67261 NST: 78259 NST ([id number]) CLINICAL INFORMATICS PHYSICIAN Miscellaneous Codes Misx Procedure Codes 34920 NST
[2024-11-20 08:00] VITALS: TEMP 98.2; O2SAT 98
[2024-11-20] MEDS: PROMETHAZINE HCL 25 MG TAB PO SCH (08:07)
[2024-11-20 09:51] VITALS: BP 133/66; PULSE 69
--- NOTE | 2024-11-27 10:39 | Discharge Summary ---
Date of Service November 27, 2024 Discharge Data Consultations 11/17/24 17:01 ED Decision to Admit Stat 11/17/24 21:34 Consult Hospitalist Routine Hospital Course (1) with 28 completed weeks gestation: Joann is a 24-year-old G5, P3 currently at 29 weeks 0 days gestational age presented with nausea and vomiting in setting of severe constipation. Patient reports that she has noted a significant improvement in symptoms as noted per HPI. Will transition to regular diet and p.o. medications. Reports Phenergan and Reglan have been working well reports that these were medications that she would commonly use prior for gastroparesis is comfortable dosing these medications. Discussed scheduling the Phenergan and taking the Reglan as needed. Reports that she has severe reflux which is significantly contributed to her nausea symptoms and was previously on Protonix prior to to control this. She reports that she has been doing well on the current protonic dosing and will continue p.o. dosing for discharge. Discussed home bowel care regimen including Colace 2 tabs twice daily, senna 1 tab at bedtime and daily and MiraLAX 17 g every 8 hours as needed which is included in discharge instructions. NST reactive within the past 24 hours and will arrange for NST for discharge today. (2) Intractable nausea and vomiting: Supervising Physician Co-Signing Physician Notes Attending addendum: The patient is a 24-year-old female with past medical history including GERD, chronic constipation, and history of prior hyperemesis during , who presented to the emergency department for intractable nausea and vomiting. She is , 28 weeks gestation. Intractable nausea and vomiting/acute on chronic constipation- MRI of abdomen without acute findings Optimize bowel regimen: MiraLAX, senna, as needed enemas Continues n.p.o. overnight, advance to clear liquid diet in a.m. as tolerated. Protonix and famotidine IV as noted Phenergan IV as noted IVF's check a CBCD, CMP and Mag level in AM Coding Level of Care Code None Diagnoses with 28 completed weeks gestation Z3A.28 Intractable nausea and vomiting R11.2
== END 2024-11-20 12:46 | disposition home or self-care (01) | DRG 833 ==
LOC: ED 12:24 → EDINP 12:24 → 4E1 19:23